=== PATIENT | female | born 1975 | race Two or more races ===

== ENCOUNTER 2020-05-03 13:59 | Outpatient (REF) | payer OTHER, SELFPAY ==
--- NOTE | 2020-05-03 14:06 | MM_ITS ---
EXAMINATION: MM SCREENING DIGITAL BREAST TOMOSYNTHESIS, BILATERAL CLINICAL INFORMATION: Screening. Asymptomatic. Left breast biopsy 2017, fibroadenoma. The lifetime risk of breast cancer based on the Tyrer-Cuzick Model is 16%. COMPARISON: Mammography: 04/17/2019, 04/22/2018, 01/19/2017 TECHNIQUE: Digital breast tomosynthesis is performed in both the craniocaudal and mediolateral oblique views along with computer-aided detection (CAD). Synthesized 2D images are generated from the tomosynthesis. FINDINGS: There are scattered areas of fibroglandular density (ACR BI-RADS breast composition Category b). There are no significant masses, abnormal calcifications, or other abnormalities. There is a nodule upper outer left breast with biopsy clip marker consistent with the known fibroadenoma. No significant changes. MM/MM tomosynthesis screening BI IMPRESSION: No significant changes from prior studies. ASSESSMENT: BI-RADS 2: Benign RECOMMENDATION: Routine annual mammography screening. This patient's information was entered into a reminder system with a target due date for their next mammogram.
== END 2020-05-03 14:00 | disposition home or self-care (01) ==
LOC: HO.MAMMO 13:59
PROVIDERS: Visit Provider Family Medicine
DX: Z12.31 Encounter for screening mammogram for malignant neoplasm of breast (principal)
CPT/HCPCS: 77063; 77067

== ENCOUNTER 2020-12-02 14:39 | Outpatient (REF) | payer OTHER, SELFPAY ==
--- NOTE | ~2020-12-02 | US_ITS ---
EXAMINATION: PELVIC ULTRASOUND CLINICAL INFORMATION: Leiomyoma COMPARISON: Previous pelvic ultrasound February 2016 TECHNIQUE: Transabdominal and transvaginal pelvic ultrasound was performed. Transvaginal exam was performed for better visualization is an ovaries. FINDINGS: The uterus is anteverted and retroflexed and measures 11 x 5.6 x 6.7 cm in dimension. There is a 1.5 x 1.4 x 4.5 cm hyperechoic lesion in the anterior right uterine fundus suggestive of a fibroid. This measured 1.8 x 1.3 x 3.8 cm on previous ultrasound does not appear appreciably changed in size. No other focal uterine lesion is seen. The endometrium is not well visualized. The cervix is normal appearing. The ovaries are seen transabdominally only and are normal-appearing. In the right ovary measures 2.4 x 1.8 x 1.8 cm and the left ovary measures 3.4 x 1.2 x 1.6 cm. There is no fluid in the pelvis. US/US pelvic and transvaginal IMPRESSION: Limited exam. Stable anterior fundal uterine fibroid. Endometrium not well visualized. Normal-appearing ovaries.
== END 2020-12-02 14:40 | disposition home or self-care (01) ==
LOC: HO.HMGCX 14:39
PROVIDERS: Visit Provider Advanced Practice Midwife
DX: D25.9 Leiomyoma of uterus, unspecified (principal)
CPT/HCPCS: 76830; 76856

== ENCOUNTER 2021-03-17 10:18 | Outpatient (REF) | payer OTHER, SELFPAY ==
--- NOTE | ~2021-03-17 | US_ITS ---
EXAMINATION: US ABDOMEN LIMITED CLINICAL INFORMATION: Right upper quadrant pain. COMPARISON: None TECHNIQUE: Real-time imaging of the right upper quadrant abdominal viscera. FINDINGS: PANCREAS: Normal. LIVER: Normal. The liver is normal in size. The liver contour is normal. Parenchymal echogenicity is normal. No focal hepatic lesion. There is no intrahepatic biliary duct dilatation seen. GALLBLADDER: Normal. The gallbladder is physiologically distended without evidence of stones, sludge, polyps, wall thickening or pericholecystic fluid. COMMON BILE DUCT: Normal in caliber measuring 0.32 cm in diameter. RIGHT KIDNEY: Normal. No hydronephrosis. No renal calculi or focal parenchymal lesions. The kidney measures 10.3 cm in maximum dimension. FREE FLUID: None. US/US abdomen limited IMPRESSION: Unremarkable sonographic appearance of the right upper quadrant of the abdomen.
== END 2021-03-17 10:19 | disposition home or self-care (01) ==
LOC: HO.HMGCX 10:18
PROVIDERS: PCP Internal Medicine; Visit Provider Internal Medicine
DX: R10.11 Right upper quadrant pain (principal)
CPT/HCPCS: 76705

== ENCOUNTER 2021-06-06 09:39 | Outpatient (REF) | payer OTHER, SELFPAY ==
--- NOTE | ~2021-06-06 | MM_ITS ---
EXAMINATION: MM SCREENING DIGITAL BREAST TOMOSYNTHESIS, BILATERAL CLINICAL INFORMATION: Screening. Asymptomatic. Left breast biopsy 2017 (fibroadenoma). The lifetime risk of breast cancer based on the Tyrer-Cuzick Model is 17%. COMPARISON: Mammography: 05/03/2020, 04/17/2019, 03/22/2018 TECHNIQUE: Digital breast tomosynthesis is performed in both the craniocaudal and mediolateral oblique views along with computer-aided detection (CAD). Synthesized 2D images are generated from the tomosynthesis. FINDINGS: There are scattered areas of fibroglandular density (ACR BI-RADS breast composition Category b). There are no significant masses, abnormal calcifications, or other abnormalities. There is a stable circumscribed nodule with adjacent biopsy clip marker mid upper outer left breast consistent with the known fibroadenoma. The axilla and skin contours are unremarkable. MM/MM tomosynthesis screening BI IMPRESSION: No mammographic evidence of malignancy. ASSESSMENT: BI-RADS 2: Benign RECOMMENDATION: Routine annual mammography screening. This patient's information was entered into a reminder system with a target due date for their next mammogram.
== END 2021-06-06 09:40 | disposition home or self-care (01) ==
LOC: HO.MAMMO 09:39
PROVIDERS: Visit Provider Internal Medicine
DX: Z12.31 Encounter for screening mammogram for malignant neoplasm of breast (principal)
CPT/HCPCS: 77063; 77067

== ENCOUNTER 2021-07-27 17:22 | Emergency (ER) | payer OTHER, SELFPAY ==
[2021-07-27 17:46] VITALS: BP 128/74; PULSE 90; RESP 16; TEMP 36.8; O2SAT 98; BMI 30.7
[2021-07-27 18:20] LABS: UPreg QC Valid YES; Urine Pregnancy NEGATIVE (NEGATIVE)
[2021-07-27 18:23] LABS: Appearance Urine CLEAR; Color Urine YELLOW; Glucose Urine UA NEG (NEG); Leukocyte Esterase Urine NEG (NEG); Nitrite Urine NEG (NEG); PH 5.5 (5.0-8.0); Urine Blood NEG (NEG); Urine Ketones NEG (NEG); Urine Protein NEG (NEG-TRACE)
--- NOTE | 2021-07-27 22:47 | ED_ITS ---
HPI - Female Genitourinary General Chief complaint: Urogenital-Female Stated complaint: urine infection Time Seen by Provider: 07/27/21 22:47 Source: patient, family () and behavior support specialist Mode of arrival: ambulatory History of Present Illness HPI Narrative: 45-year-old female without significant past medical history and does not take any prescribed medication presents with 3 days of increasing urinary frequency without associated burning/pain and denies any associated fever, chills, nausea, vomiting, diarrhea. Patient notes that she did increase her water/use intake because she thought she was getting a urinary tract infection. Although triage note says that she was having flank pain, patient states that she is no longer having the symptoms after she increased her water intake. Related Data Allergies Allergy/AdvReac Type Severity Reaction Status Date / Time No Known Allergies Allergy Verified 07/27/21 17:52 [No Known Allergies*] Review of Systems Review of Systems: Pertinent positives negatives as stated in HPI and 10 point review of systems is otherwise negative. [facility] Past Medical History Source: nursing notes reviewed Medical History delivery delivered Fibroid, uterine Social History Social History Advance Directives: No Advance Directives Information Provided: No Patient : No Physical Exam Vital Signs: Vital Signs: Last Vital Signs Temp 98.1 F 07/27/21 22:59 Pulse 76 07/27/21 22:59 Resp 14 07/27/21 22:59 BP 123/81 07/27/21 22:59 Pulse Ox 100 07/27/21 22:59 BMI result Body Mass Index 30.7 VITAL SIGNS: Reviewed. GENERAL: Well developed, well nourished, in no acute distress. HEAD: Normocephalic/atraumatic EYES: PERRLA, EOMI OROPHARYNX: no oral lesions noted, posterior pharynx clear LUNGS: Normal breath sounds. No adventitious sounds or accessory muscle use. SpO2<100> CARDIOVASCULAR: Regular rate and rhythm without noted murmurs ABDOMEN: Soft, non-tender, non-distended with bowel sounds, no CVA tenderness NEUROLOGIC: Alert and oriented x 4. Strength and sensation to light touch were grossly intact x 4. Course Course Course Narrative: 45-year-old female with history and clinical presentation mildly suggestive of possible UTI/renal colic, but symptoms have completely resolved and on review of all investigations and there is no evidence of hematuria or UTI. Suspect that increased frequency was secondary to increased fluid intake. Clinically, there is no evidence urinary tract infection. All results discussed with the patient at bedside in Hungarian and she was discharged home in stable condition. MDM - Female Genitourinary Lab Data Labs: Lab Results 07/27/21 07/27/21 Range/Units 18:05 18:05 Urine Color YELLOW Urine Appearance CLEAR Urine pH 5.5 (5.0-8.0) Ur Specific [place] 1.020 (1.005-1.025) Urine Protein NEG (NEG-TRACE) MG/DL Urine Glucose (UA) NEG (NEG) MG/DL Urine Ketones NEG (NEG) MG/DL Urine Blood NEG (NEG) Urine Nitrite NEG (NEG) Ur Leukocyte Esterase NEG (NEG) Urine Test NEGATIVE (NEGATIVE) Discharge Plan Discharge Clinical Impression: Urinary frequency Patient Disposition: Home, Self-Care Instructions: Urinary Urgency and Frequency (DC) Additional Instructions: 1. Voc? fez um exame de urina hoje que foi negativo para evid?ncia de hemat?salvador ou infec??o. 2. Embora exista a remota possibilidade de voc? ter sarah pedra, voc? deve ter passado pela pedra. Retorne ao pronto-chandrika para piora dos sintomas
[2021-07-27 22:59] VITALS: BP 123/81; PULSE 76; RESP 14; TEMP 36.7; O2SAT 100
== END 2021-07-27 23:49 | disposition home or self-care (01) ==
PROVIDERS: Emergency Provider Student in an Organized Health Care Education/Training Program
DX: R35.0 Frequency of micturition (principal)
CPT/HCPCS: 81003; 81025; 99283

== ENCOUNTER 2022-02-15 08:43 | Emergency (ER) | payer MEDICAID, OTHER, SELFPAY ==
--- NOTE | 2022-02-15 | ECG_ITS ---
Test Reason : ABD PAIN Blood Pressure : / mmHG Vent. Rate : 078 BPM Atrial Rate : 078 BPM P-R Int : 156 ms QRS Dur : 094 ms QT Int : 382 ms P-R-T Axes : 047 004 009 degrees QTc Int : 435 ms Normal sinus rhythm Normal ECG No previous ECGs available Referred By: Lety Neri Electronically Signed By:IGNACIO LOWRY
--- NOTE | ~2022-02-15 | US_ITS ---
EXAMINATION: US PELVIS CLINICAL INFORMATION: Vaginal bleeding COMPARISON: 12/02/2020 TECHNIQUE: Ultrasound of the pelvis is performed using both transabdominal and transvaginal transducers along with Doppler. Transvaginal imaging is performed due to inadequate visualization transabdominally. Even the endovaginal images however are somewhat limited due to position of the uterus FINDINGS: Uterus: The uterus is anteverted but retroflexed and measures 11.3 x 5.4 x 6.5 cm. 1.6 x 1.4 x 3.6 cm left anterior fibroid. 1.7 x 1.0 x 1.6 cm right anterior body fibroid. The double wall endometrial thickness is 1.5 cm mm. The uterus is smooth in contour and has normal myometrial echogenicity. Adnexa: Both ovaries are visualized. There is normal color flow to the adnexa. There is no ovarian torsion. There is no pelvic ascites or fluid collection. Right ovary measures 2.1 x 1.5 x 1.4 cm. 2.3 mL. Left ovary measures 2.0 x 1.9 x 2.2 cm. 4.4 mL. No significant free fluid in the cul-de-sac. US/US pelvic and transvaginal IMPRESSION: I do not appreciate any acute abnormality. Small fibroids noted. Ovaries unremarkable.
[2022-02-15 09:06] VITALS: BP 138/82; PULSE 97; RESP 18; TEMP 36.8; O2SAT 96; BMI 28.7
[2022-02-15 09:27] LABS: MANUAL DIFF FLAG NO
[2022-02-15 09:28] LABS: Basophils Percent Auto 0.2 % (0-2); Eosinophils Absolute Auto 0.1 X10*3/uL (0.0-0.4); Eosinophils Percent Auto 0.9 % (0-4); Hematocrit 43.6 % (37.0-47.0); Hemoglobin 14.3 g/dl (12.0-16.0); Imm Gran Abs Auto 0.02 X10*3/uL (0.00-0.03); Imm Gran Pct Auto 0.2 % (0.0-0.4); Lymphocytes Absolute Auto 2.4 X10*3/uL (1.2-4.9); Mean Corpuscular HGB Conc 32.8 g/dl (31.0-35.0); Mean Corpuscular Hemoglobin 28.9 pg (27.0-33.0); Mean Corpuscular Volume 88.1 fL (80.0-98.0); Mean Platelet Volume 9.6 fL (9.4-12.3); Monocytes Absolute Auto 0.7 X10*3/uL (0.1-1.2); Monocytes Percent Auto 7.8 % (2-11); Neutrophils Absolute Auto 5.7 x10*3/uL (2.0-8.3); Neutrophils Percent Auto 63.9 % (45-73); Platelet Count 296 X10*3/uL (160-400); Red Blood Count 4.95 X10*6/uL (4.20-5.50); Red Cell Distribution Width 12.6 % (11.0-16.0); White Blood Count 8.9 X10*3/uL (4.8-10.8)
[2022-02-15 09:56] LABS: Alanine Aminotransferase 17 U/L (0-31); Albumin Level 4.2 g/dL (3.5-5.0); Alkaline Phosphatase 65 U/L (39-117); Anion Gap 14 (12-20); Aspartate Amino Transferase 19 U/L (5-31); Bilirubin Total 0.5 mg/dL (0.0-1.0); Blood Urea Nitrogen 19 mg/dL (9-16); Calcium 9.7 mg/dL (8.4-10.2); Carbon Dioxide 25 mmol/L (22-29); Chloride 106 mmol/L (96-108); Creatinine Clr Calc Pharmacy 82.1; Estimated Glomerular Filt Rate > 60; Glucose Random 108 mg/dL (60-115); Lipase 32 U/L (8-78); Sodium 140 mmol/L (135-145)
[2022-02-15 18:02] VITALS: BP 120/78; PULSE 89; RESP 18; TEMP 37.1; O2SAT 100
--- NOTE | 2022-02-15 18:02 | ED_ITS ---
HPI - Abdominal Pain General Chief Complaint: Abdominal Pain Stated Complaint: Abd pain/Vaginal bleeding Source: patient Mode of arrival: ambulatory Limitations: language barrier (Malaysian, is interpreting) History of Present Illness HPI narrative: 46-year-old female presents with epigastric abdominal pain for 4 days, and abnormal vaginal bleeding. States that she is on a new diet, has been drinking a lot of coffee, and has a history of uterine fibroids. She does report that the epigastric pain radiates up through chest. She did not describe palpitations, fevers, chills, abdominal distention, weakness, chills, and edema. MD elicited complaint: abdominal pain Onset (ago): day(s) (5) Pain Consistency: intermittent Location: epigastric Severity: moderate Pain scale (0-10): 7 Quality: burning Radiation: none Migration to: no migration Exacerbating factors: eating Relieving factors: nothing Associated symptoms: other (Abnormal vaginal bleeding) Related Data Patient : No Previous Rx's Medication Instructions Recorded nitrofurantoin 100 mg PO Q12H 7 days #14 caps 02/15/22 monohydrate/macrocrystals 100 mg capsule (Macrobid) Allergies Allergy/AdvReac Type Severity Reaction Status Date / Time No Known Allergies Allergy Verified 02/15/22 09:06 [No Known Allergies*] Review of Systems Review of Systems Constitutional: No Fever, No Chills ENT/Mouth: No Ear Pain, No Hoarseness, No sore throat Eyes: No Eye Pain, No Swelling, No Redness, No Foreign Body Cardiovascular: Positive referred Chest Pain, No SOB Respiratory: No Cough, No Dyspnea Gastrointestinal: No Nausea, No Vomiting, No Diarrhea, positive epigastric abdominal Pain Genitourinary: Positive abnormal vaginal bleeding, No Dysuria, No Hematuria Musculoskeletal: positive joint pain, No Myalgias, No Joint Swelling Skin: No Skin lacerations, No rash Neuro: No Weakness, No Numbness, No Paresthesias, No Loss of Consciousness, No Dizziness, No Headache Psych: No Anxiety/Panic, No Depression Heme/Lymph: no easy bruising, no Lymphadenopathy Endocrine: No Polyuria, No Polydipsia Yes all other systems are reviewed and are negative PMFSH Past Medical History Attestation statement: The following information was validated with the patient. Source: old records reviewed Medical History delivery delivered Fibroid, uterine Social History Social History Smoked in Last 30 Days: No Use of substances other than those prescribed or required for medical reasons: No Advance Directives: No Advance Directives Information Provided: No Patient : No Physical Exam ED Vital Signs: Vital Signs - 24 hr 02/15/22 09:06 02/15/22 18:02 02/15/22 20:12 Temperature 98.3 F 98.8 F 97.3 F Pulse Rate 97 89 78 Respiratory Rate 18 18 18 Blood Pressure 138/82 120/78 119/81 Pulse Oximetry 96 100 97 Oxygen Delivery Method Room Air Room Air Room Air BMI result Body Mass Index 28.7 Appearance: Alert. Oriented X3. No acute distress. Eyes: Pupils equal, round and reactive to light. ENT: Pharynx normal. Neck: Normal inspection. Neck supple. CVS: Normal heart rate and rhythm. Pulses normal. Respiratory: No respiratory distress. Breath sounds normal. Abdomen: Soft and epigastric tenderness to palpation. Negative Mukherjee's and McBurney's. Skin: Skin warm and dry. Normal skin color. Normal skin turgor. Extremities: No lower extremity edema. Gait well-balanced well coordinated. Neuro: No motor deficit. No sensory deficit. Cranial nerves 2-12 intact Course Course Course Narrative: 46-year-old female presents with 5 days of epigastric pain, mostly after drinking coffee, states that she is on a new diet and has epigastric burning. Has been taking Maalox with good effect. Her 2nd complaint is abnormal vaginal bleeding. She does have a history of uterine fibroids. Labs drawn while patient was in the emergency department waiting room, BUN elevated at 19, urinalysis positive for heme and leukocyte esterase. Will order pelvic ultrasound time. Will rule ACS with EKG and troponin. Pelvic ultrasound is negative, will treat for UTI. EKG normal sinus, troponins are negative. Low likelihood of ACS. Will treat with nitrofurantoin, Malaysian leveler helper utilized, patient's acted as pay station department manager per patient request. Patient verbalized understanding of and agrees to plan of care discharge home. Verbalized understanding of signs and symptoms indicating need for emergent intervention. MDM - Abdominal Pain Differential Diagnosis Differential diagnosis: Likely abdominal pain, acute appendicitis, calculus of kidney, gastroenteritis, gastritis and pancreatitis Medical Records Attestation: I reviewed the patient's medical records. Lab Data Attestation: I reviewed the patient's lab results. Result diagrams: 02/15/22 09:17 02/15/22 09:17 Labs: Lab Results 02/15/22 02/15/22 02/15/22 Range/Units 09:17 09:17 18:21 WBC 8.9 (4.8-10.8) X10*3/uL RBC 4.95 (4.20-5.50) X10*6/uL Hgb 14.3 (12.0-16.0) g/dl Hct 43.6 (37.0-47.0) % MCV 88.1 (80.0-98.0) fL MCH 28.9 (27.0-33.0) pg MCHC 32.8 (31.0-35.0) g/dl RDW 12.6 (11.0-16.0) % Plt Count 296 (160-400) X10*3/uL MPV 9.6 (9.4-12.3) fL Immature Gran % (Auto) 0.2 (0.0-0.4) % Neut % (Auto) 63.9 (45-73) % Lymph % (Auto) 27.0 (20-40) % [place] % (Auto) 7.8 (2-11) % Eos % (Auto) 0.9 (0-4) % Baso % (Auto) 0.2 (0-2) % Lymph # (Auto) 2.4 (1.2-4.9) X10*3/uL [place] # (Auto) 0.7 (0.1-1.2) X10*3/uL Eos # (Auto) 0.1 (0.0-0.4) X10*3/uL Baso # (Auto) 0.0 (0.0-0.2) X10*3/uL Abs Immat Gran (auto) 0.02 (0.00-0.03) X10*3/uL Absolute Neuts (auto) 5.7 (2.0-8.3) x10*3/uL Absolute Nucleated RBC 0.000 (0.0-0.012) X10*3/uL Nucleated RBC % (auto) 0.0 (0.0-0.2) /100WBC Sodium 140 (135-145) mmol/L Potassium 5.0 (3.3-5.1) mmol/L Chloride 106 (96-108) mmol/L Carbon Dioxide 25 (22-29) mmol/L Anion Gap 14 (12-20) BUN 19 H (9-16) mg/dL Creatinine 0.76 (0.5-1.4) mg/dL Estim Creat Clear Calc 82.1 Estimated GFR > 60 Random Glucose 108 (60-115) mg/dL Calcium 9.7 (8.4-10.2) mg/dL Total Bilirubin 0.5 (0.0-1.0) mg/dL AST 19 (5-31) U/L ALT 17 (0-31) U/L Alkaline Phosphatase 65 (39-117) U/L Troponin I High Sens (<3.5-17.0) ng/L Total Protein 7.0 (6.5-8.0) g/dL Albumin 4.2 (3.5-5.0) g/dL Lipase 32 (8-78) U/L Urine Color Yellow Urine Appearance Clear Urine pH 5.5 (5.0-9.0) Ur Specific [place] 1.025 (1.005-1.025) Urine Protein Negative (Neg-Trace) mg/dL Urine Glucose (UA) Negative (Negative) mg/dL Urine Ketones Trace (Negative) mg/dL Urine Blood Moderate (2+) H (Negative) Urine Nitrite Negative (Negative) Ur Leukocyte Esterase Trace H (Negative) Urine RBC 6-10 H (0-2) /HPF Urine WBC 0-5 (0-5) /HPF Ur Squamous Epith Cells 3-5 (0-2) /HPF Urine Bacteria None Seen (None Seen) Hyaline Casts 0-2 (0-2) /LPF Urine Test (NEGATIVE) 02/15/22 02/15/22 Range/Units 18:21 20:00 WBC (4.8-10.8) X10*3/uL RBC (4.20-5.50) X10*6/uL Hgb (12.0-16.0) g/dl Hct (37.0-47.0) % MCV (80.0-98.0) fL MCH (27.0-33.0) pg MCHC (31.0-35.0) g/dl RDW (11.0-16.0) % Plt Count (160-400) X10*3/uL MPV (9.4-12.3) fL Immature Gran % (Auto) (0.0-0.4) % Neut % (Auto) (45-73) % Lymph % (Auto) (20-40) % [place] % (Auto) (2-11) % Eos % (Auto) (0-4) % Baso % (Auto) (0-2) % Lymph # (Auto) (1.2-4.9) X10*3/uL [place] # (Auto) (0.1-1.2) X10*3/uL Eos # (Auto) (0.0-0.4) X10*3/uL Baso # (Auto) (0.0-0.2) X10*3/uL Abs Immat Gran (auto) (0.00-0.03) X10*3/uL Absolute Neuts (auto) (2.0-8.3) x10*3/uL Absolute Nucleated RBC (0.0-0.012) X10*3/uL Nucleated RBC % (auto) (0.0-0.2) /100WBC Sodium (135-145) mmol/L Potassium (3.3-5.1) mmol/L Chloride (96-108) mmol/L Carbon Dioxide (22-29) mmol/L Anion Gap (12-20) BUN (9-16) mg/dL Creatinine (0.5-1.4) mg/dL Estim Creat Clear Calc Estimated GFR Random Glucose (60-115) mg/dL Calcium (8.4-10.2) mg/dL Total Bilirubin (0.0-1.0) mg/dL AST (5-31) U/L ALT (0-31) U/L Alkaline Phosphatase (39-117) U/L Troponin I High Sens < 3.5 (<3.5-17.0) ng/L Total Protein (6.5-8.0) g/dL Albumin (3.5-5.0) g/dL Lipase (8-78) U/L Urine Color Urine Appearance Urine pH (5.0-9.0) Ur Specific [place] (1.005-1.025) Urine Protein (Neg-Trace) mg/dL Urine Glucose (UA) (Negative) mg/dL Urine Ketones (Negative) mg/dL Urine Blood (Negative) Urine Nitrite (Negative) Ur Leukocyte Esterase (Negative) Urine RBC (0-2) /HPF Urine WBC (0-5) /HPF Ur Squamous Epith Cells (0-2) /HPF Urine Bacteria (None Seen) Hyaline Casts (0-2) /LPF Urine Test NEGATIVE (NEGATIVE) Imaging Data Pelvic ultrasound: Attestation: I personally reviewed and interpreted this imaging study as follows: Radiologist's impression: EXAMINATION:? US PELVIS CLINICAL INFORMATION:? Vaginal bleeding COMPARISON: 12/02/2020 TECHNIQUE: Ultrasound of the pelvis is performed using both transabdominal and transvaginal transducers along with Doppler. Transvaginal imaging is performed due to inadequate visualization transabdominally. Even the endovaginal images however are somewhat limited due to position of the uterus FINDINGS: Uterus: The uterus is anteverted but retroflexed and measures 11.3 x 5.4 x 6.5 cm.? 1.6 x 1.4 x 3.6 cm left anterior fibroid. 1.7 x 1.0 x 1.6 cm right anterior body fibroid. The double wall endometrial thickness is 1.5 cm mm.? The uterus is smooth in contour and has normal myometrial echogenicity. ? Adnexa: Both ovaries are visualized. There is normal color flow to the adnexa. There is no ovarian torsion.? There is no pelvic ascites or fluid collection. Right ovary measures 2.1 x 1.5 x 1.4 cm. 2.3 mL. Left ovary measures 2.0 x 1.9 x 2.2 cm. 4.4 mL. No significant free fluid in the cul-de-sac. US/US pelvic and transvaginal IMPRESSION: I do not appreciate any acute abnormality. Small fibroids noted. Ovaries unremarkable. ECG Data Attestation: I personally reviewed and interpreted this ECG as follows: ECG interpretation date: 02/15/22 ECG interpretation time: 20:17 Prior ECG tracings: not available for review Interpretation: Vent. rate 78 BPM ND interval 156 ms QRS duration 94 ms QT/QTc 382/435 ms P-R-T axes 47 4 9 Normal sinus rhythm Normal ECG No previous ECGs available Discharge Plan Discharge Clinical Impression: Abdominal pain, Abnormal vaginal bleeding, Gastritis, UTI (urinary tract infection) Patient Disposition: Home, Self-Care Instructions: Dysfunctional Uterine Bleeding (ED), Gastritis (ED), Urinary Tract Infection in Women (ED), Abdominal Pain (ED) Additional Instructions: Voc? foi avaliado para smith abdominal, essa smith ? compat?aimee com gastrite. Continue a usar o Maalox brien receita. Considere beber menos caf?. Acompanhamento com gastroenterologia em ambulat?ambreen. Ligue e solicite um hor?ambreen para avalia?? o. Eu forneci um n?scott de telefone para voc? Seu exame de urina indica infec??o do trato urin?ambreen. [place] Macrobid 100 mg duas vezes por geetha eddy os 7 [place] seguintes. Beber corie quantidade de l?quidos. Seu ultrassom p?lvico foi normal com miomas uterinos conhecidos. Acompanhamento com m?dico de cuidados prim?frank, conforme necess?ambreen. Retorne ao departamento de emerg?ncia para quaisquer sintomas novos, preocupantes ou agravantes. You were evaluated for abdominal pain, this pain is consistent with gastritis. Continue to use huwk-ebt-bnflxki Maalox. Consider drinking less coffee. Follow-up with gastroenterology as an outpatient. Please call and request an appointment for evaluation. I provided a phone number for you Your urinalysis indicates urinary tract infection. Take Macrobid 100 mg twice a day for the next 7 days. Drink plenty of fluids. Your pelvic ultrasound was normal with known uterine fibroids. Follow-up with primary care physician as needed. Return to the emergency department for any new, concerning, or worsening symptoms. Prescriptions: New nitrofurantoin monohyd/m-cryst [Macrobid] 100 mg capsule 100 mg PO Q12H 7 Days Qty: 14 0RF Rx Instructions: must administer with a meal/food Referrals: Jessica Cazares MD [Physician] - 2 weeks (GERD) Interventions: ED Discharge Assessment Last Done: 02/15/22 21:50 Discharge Date/Time: 02/15/22 21:54
[2022-02-15 18:28] LABS: Appearance Urine Clear; Color Urine Yellow; Glucose Urine UA Negative (Negative); Leukocyte Esterase Urine Trace (Negative); Nitrite Urine Negative (Negative); PH 5.5 (5.0-9.0); Specific Gravity - Urine 1.025 (1.005-1.025); UMIC TRIGGER UACC YES; Urine Blood Moderate (2+) (Negative); Urine Ketones Trace mg/dL (Negative); Urine Protein Negative (Neg-Trace)
[2022-02-15 18:33] LABS: UPreg QC Valid YES; Urine Pregnancy NEGATIVE (NEGATIVE)
[2022-02-15 18:46] LABS: Bacteria Urine None Seen (None Seen); Hyaline Casts Urine 0-2 /LPF (0-2); WBC Urine 0-5 /HPF (0-5)
--- NOTE | 2022-02-15 19:30 | PC.NURSE ---
assumed care of pt at 1900 - report received from Evy MACIAS. pt resting comfortably on stretcher, IV fluids running. pt being taken for ultrasound. will continue to monitor
[2022-02-15 20:12] VITALS: BP 119/81; PULSE 78; RESP 18; TEMP 36.3; O2SAT 97
[2022-02-15 20:32] LABS: Troponin-I High Sensitivity < 3.5 ng/L (<3.5-17.0)
[2022-02-15] MEDS: Nitrofurantoin Monohyd/M-Cryst 100 MG CAPSULE PO (21:31)
== END 2022-02-15 21:54 | disposition home or self-care (01) ==
PROVIDERS: Nurse Practitioner Family; Emergency Provider Student in an Organized Health Care Education/Training Program; PCP Internal Medicine
DX: N93.8 Other specified abnormal uterine and vaginal bleeding (principal); K29.70 Gastritis, unspecified, without bleeding; N39.0 Urinary tract infection, site not specified; R10.829 Rebound abdominal tenderness, unspecified site; Z79.899 Other long term (current) drug therapy
CPT/HCPCS: 36415; 76830; 76856; 80053; 81001; 81025; 83690; 84484; 85025; 93005; 99284

== ENCOUNTER 2022-06-07 16:55 | Emergency (ER) | payer MEDICAID, OTHER, SELFPAY ==
--- NOTE | ~2022-06-07 | CT_ITS ---
EXAMINATION: CT CERVICAL SPINE WITHOUT CONTRAST CLINICAL INFORMATION: Posterior neck pain COMPARISON: None TECHNIQUE: Noncontrast axial imaging with coronal and sagittal reformatted images. This CT examination was performed using dose optimization techniques as appropriate, variously including the following: *Automated exposure control *Adjustment of mA and/or kV according to patient size (this includes techniques or standardized protocols for targeted exams where dose is matched to indication/reason for exam; i.e. extremities or head) *Use of iterative reconstruction technique DLP: 326 mGy-cm FINDINGS: No acute fracture or dislocation. CT/CT cervical spine wo IV con IMPRESSION: No acute fracture or dislocation. No intrathecal contrast is given here. Therefore evaluation of disc, cord, nerve roots and soft tissue is not adequately evaluated. Correlation recommended clinically. Recommend MRI for further evaluation if clinically indicated.
[2022-06-07 17:06] VITALS: BP 149/84; PULSE 88; RESP 18; TEMP 36.6; O2SAT 98; BMI 26.2
--- NOTE | 2022-06-07 19:16 | ED_ITS ---
HPI - General Adult General Chief complaint: Neck Pain/Injury Stated complaint: neck pain Time Seen by Provider: 06/07/22 19:09 Source: patient Mode of arrival: ambulatory Limitations: no limitations History of Present Illness HPI narrative: 46 yold female presents to the ED for posterior neck pain for 1 week. 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 patient states since than neck pain on range of motion. Patient states no fever, chills, headache, tingling/nubmness of upper extremties, photophobia, nausea, vomitting, paralysis of extremities or any recent blood trauma to head and neck Related Data Previous Rx's Medication Instructions Recorded nitrofurantoin 100 mg PO Q12H 7 days #14 caps 02/15/22 monohydrate/macrocrystals 100 mg capsule (Macrobid) cyclobenzaprine 10 mg tablet 10 mg PO TID PRN muscle spasm 7 06/07/22 days #21 tabs naproxen 500 mg tablet 500 mg PO BID PRN pain 10 days #20 06/07/22 tabs prednisone 20 mg tablet 40 mg PO DAILY 5 days #10 tabs 06/07/22 Allergies Allergy/AdvReac Type Severity Reaction Status Date / Time No Known Allergies Allergy Verified 06/07/22 17:06 [No Known Allergies*] Review of Systems Review of Systems: neck pain on movement Yes all other systems are reviewed and are negative PMFSH Past Medical History Medical History delivery delivered Fibroid, uterine Social History Social History Advance Directives: No Advance Directives Information Provided: Yes Physical Exam ED Vital Signs: Vital Signs - 24 hr 06/07/22 17:06 06/07/22 20:11 Temperature 98 F 97.8 F Pulse Rate 88 73 Respiratory Rate 18 18 Blood Pressure 149/84 H 137/82 Pulse Oximetry 98 99 Oxygen Delivery Method Room Air Room Air BMI result Body Mass Index 26.2 Const General: cooperative, healthy appearing, comfortable, no acute distress, well developed, alert, awake and Physically active Orientation/consciousness: oriented to person, oriented to place, oriented to time and patient oriented x3 HENMT Head: Yes normal to inspection, Yes No palpable skull fracture present, Yes normocephalic, Yes atraumatic and No abrasion Ears: hearing grossly normal bilaterally, external ears normal, TM's normal bilaterally, TM normal on the right, EAC's normal, mastoids normal and no periauricular adenopathy Eyes General: appearance normal, both eyes and all related structures Neck Neck: Yes normal visual inspection, Yes full ROM, Yes no lymphadenopathy, Yes no meningeal signs, Yes trachea midline, Yes supple, No anterior neck swelling and Yes tender (posterior cervical and posterior left lateral) Neck images: 1. tenderness on palpation. negative for any crepitus or ecchysmosis/redness 2. tenderness on palpation. negative for any crepitus or ecchysmosis/redness Chest Chest palpation & inspection: normal inspection of the chest and normal palpation of entire chest wall Resp Effort & Inspection: normal respiratory effort and able to speak in complete sentences Auscultation: clear to auscultation bilaterally Cardio Jugular venous distension: no JVD Heart sounds: S1 normal heart sound present and S2 normal heart sound present GI Inspection: Yes normal to inspection and No abdominal wall ecchymosis Palpation (GI): Soft to palpation, not firm, nontender, no guarding and not rigid General: No CVA tenderness and Yes no CVA tenderness Back/Spine/Pelvis Back: no CVA tenderness, No CVA tenderness and No back tenderness Skin General skin exam: no rashes or lesions noted and elasticity normal Neuro General: oriented to person, oriented to place, oriented to time, patient oriented x3, gait normal, tone normal, moves all extremities, Normal light touch and pain sensation, no meningeal signs, no focal motor deficits and CN's II-XI intact bilaterally Extrem General: Yes normal to inspection and Yes full ROM Psych Appearance: grossly normal and well kempt Course Course Course Narrative: Most likely muscular neck pain, but will do cervical spine CT to cervical spine tenderness. Not suspecting carotid dissection. Patient has no anterior neck pain, neck swelling, ecchymosis, blunt trauma, or recent chiropractor work. Reevaluation(s) Reevaluation #1: NEck CT Cervical spine normal. Patient feel better after meds Time: 21:01 Medications Administered Discontinued Medications Generic Name Dose Route Start Last Admin Trade Name Freq PRN Reason Stop Dose Admin Cyclobenzaprine HCl 10 mg 06/07/22 19:14 06/07/22 19:20 Cyclobenzaprine Hcl 10 Mg Tablet PO 06/07/22 19:15 10 mg ONCE ONE Administration Ibuprofen 800 mg 06/07/22 19:14 06/07/22 19:20 Ibuprofen 800 Mg Tablet PO 06/07/22 19:15 800 mg ONCE ONE Administration Prednisone 60 mg 06/07/22 19:14 06/07/22 19:20 Prednisone 20 Mg Tablet PO 06/07/22 19:15 60 mg ONCE ONE Administration Medical Decision Making Medical Decision Making MDM Narrative: 46 yold female with muscular neck pain for one week after after awkward movement. History and physical exam does not indicate meningitis, carotid dissection, fracture, or orther life threatenning etiologies Differential Diagnosis Differential Diagnoses: The differential diagnosis associated with the presentation includes (meninigits, muscle spasm, carotid dissection, cervical fracture) Admission/Observation does not need admission Radiology Impression Discussion of test interpretation with radiology: I have reviewed the radiologist's reading. Independent Historian Clinical information obtained from an independent historian. History obtained from or confirmed by: Spouse () Prescription Management I considered prescription management with: Pain Medication (naproxen) Discharge Plan Discharge Clinical Impression: Muscle spasm, Strain of neck muscle Patient Disposition: Home, Self-Care Instructions: Cervical Strain (ED), Cervical Sprain (ED), Muscle Spasm (ED) Additional Instructions: La tomograf?a computarizada del tena result? negativa para cualquier fractura. Lo m?s probable es que te hayas desgarrado un m?sculo. Ser? dado de minerva con a nalg?sicos, relajantes musculares y esteroides. Recomendamos compresiones calientes o en el tena 4 veces al d?a eddy 15 minutos. Regrese al servicio de urgencias por fotofobia, n?useas, v?mitos, dolor de ramo, par?lisis de las extremidades superiores, hormigueo/entumecimiento de las extremidades superiores, dolor tor?cico, dificultad para respirar o cualquier otro s?ntoma preocupante. Por favor, kari un seguimiento con el PCP. Prescriptions: New naproxen 500 mg tablet 500 mg PO BID PRN (Reason: pain) 10 Days Qty: 20 0RF prednisone 20 mg tablet 40 mg PO DAILY 5 Days Qty: 10 0RF cyclobenzaprine 10 mg tablet 10 mg PO TID PRN (Reason: muscle spasm) 7 Days Qty: 21 0RF Rx Instructions: side effect is drowsiness. Do not take at work or while driving No Action nitrofurantoin monohyd/m-cryst [Macrobid] 100 mg capsule 100 mg PO Q12H 7 Days Qty: 14 0RF Rx Instructions: must administer with a meal/food Referrals: Terrance Bates MD [Primary Care Provider] - (neck pain) Stand Alone Forms: Work/School Release Interventions: ED Discharge Assessment Last Done: 06/07/22 21:24 Discharge Date/Time: 06/07/22 21:24 Print Language: Maori
[2022-06-07] MEDS: Ibuprofen 800 MG TABLET PO (19:20)
[2022-06-07] MEDS: predniSONE 20 MG TABLET 60 MG PO (19:20)
[2022-06-07] MEDS: Cyclobenzaprine HCl 10 MG TABLET PO (19:20)
--- NOTE | 2022-06-07 19:22 | PC.NURSE ---
pt medicated per provider order for 8/10 neck pain/stiffness.
[2022-06-07 20:11] VITALS: BP 137/82; PULSE 73; RESP 18; TEMP 36.6; O2SAT 99
--- NOTE | 2022-06-07 20:52 | PC.NURSE ---
pt reporting slight reduction in pain to 7/10 w improvement in movement and flexion noted.
== END 2022-06-07 21:24 | disposition home or self-care (01) ==
PROVIDERS: Emergency Provider Internal Medicine; PCP Internal Medicine
DX: M54.2 Cervicalgia (principal); M62.838 Other muscle spasm; Z79.899 Other long term (current) drug therapy
CPT/HCPCS: 72125; 99284

== ENCOUNTER 2022-06-15 13:07 | Outpatient (REF) | payer MEDICAID, OTHER, SELFPAY ==
--- NOTE | ~2022-06-15 | MM_ITS ---
EXAMINATION: MM SCREENING DIGITAL BREAST TOMOSYNTHESIS, BILATERAL CLINICAL INFORMATION: Screening. Asymptomatic. The lifetime risk of breast cancer based on the Tyrer-Cuzick Model is 19.0%. COMPARISON: Mammography: June 06, 2021 and studies dating back to January 01, 2017 TECHNIQUE: Digital breast tomosynthesis is performed in both the craniocaudal and mediolateral oblique views along with computer-aided detection (CAD). Synthesized 2D images are generated from the tomosynthesis. FINDINGS: There are scattered areas of fibroglandular density (ACR BI-RADS breast composition Category b). There are no significant masses, abnormal calcifications, or other abnormalities. MM/MM tomosynthesis screening BI IMPRESSION: No significant changes from prior exam. ASSESSMENT: BI-RADS 1: Negative RECOMMENDATION: Routine annual mammography screening. This patient's information was entered into a reminder system with a target due date for their next mammogram.
== END 2022-06-15 13:08 | disposition home or self-care (01) ==
LOC: HO.MAMMO 13:07
PROVIDERS: PCP Internal Medicine; Visit Provider Internal Medicine
DX: Z12.31 Encounter for screening mammogram for malignant neoplasm of breast (principal)
CPT/HCPCS: 77063; 77067

== ENCOUNTER 2022-06-19 17:39 | Emergency (ER) | payer MEDICAID, OTHER, SELFPAY ==
--- NOTE | ~2022-06-19 | CT_ITS ---
EXAMINATION: CT ABDOMEN AND PELVIS WITH CONTRAST CLINICAL INFORMATION: Abdominal pain COMPARISON: None TECHNIQUE: Multidetector volumetric images were obtained from the superior aspect of the liver through the pubic symphysis following administration 85 mL of Omnipaque 350 intravenous contrast. Sagittal and coronal reformatted images were obtained on the technologist's workstation. Oral contrast: No This CT examination was performed using dose optimization techniques as appropriate, variously including the following: *Automated exposure control *Adjustment of mA and/or kV according to patient size (this includes techniques or standardized protocols for targeted exams where dose is matched to indication/reason for exam; i.e. extremities or head) *Use of iterative reconstruction technique DLP: 441 mGy-cm FINDINGS: LUNG BASES: The visualized lung bases are unremarkable. LIVER, GALLBLADDER, AND BILIARY TREE: The liver is normal in size, shape, and attenuation. No focal hepatic lesion or biliary ductal dilatation is present. The gallbladder is unremarkable with no evidence of radiopaque gallstones, gallbladder wall thickening, or obvious pericholecystic inflammatory changes. PANCREAS: Unremarkable. SPLEEN: Unremarkable. ADRENAL GLANDS: Unremarkable. KIDNEYS AND URETERS: The kidneys are normal in size, shape, and attenuation. There are nonobstructive 3 mm upper pole right kidney and a 2 mm radiopaque calculi upper pole left kidney. No caliectasis or hydronephrosis seen. BLADDER: Unremarkable. GASTROINTESTINAL TRACT: There is large amount of stool seen in the colon without any significant distention. The small bowel loops are normal caliber. Appendix is not visualized. ABDOMINAL WALL: No significant hernia is appreciated. LYMPH NODES: Normal. VASCULAR: The abdominal aorta is normal caliber. PELVIC VISCERA: The uterus is anteverted and slightly bulky. No focal lesion seen. There is no free fluid. No abnormal pelvic or inguinal lymph nodes seen. There is no free fluid. OSSEOUS STRUCTURES: No aggressive lytic or sclerotic process seen. CT/CT abdomen pelvis w IV con IMPRESSION: No acute intra-abdominal process seen Nonobstructive bilateral upper pole renal calculi. Anteverted bulky uterus. Fleischner guidelines were followed.
--- NOTE | 2022-06-19 17:45 | ED_ITS ---
HPI - General Adult General Chief complaint: Abdominal Pain Stated complaint: Abdominal Pain, Nausea, Vomiting Time Seen by Provider: 06/19/22 18:17 Related Data Previous Rx's Medication Instructions Recorded nitrofurantoin 100 mg PO Q12H 7 days #14 caps 02/15/22 monohydrate/macrocrystals 100 mg capsule (Macrobid) cyclobenzaprine 10 mg tablet 10 mg PO TID PRN muscle spasm 7 06/07/22 days #21 tabs naproxen 500 mg tablet 500 mg PO BID PRN pain 10 days #20 06/07/22 tabs prednisone 20 mg tablet 40 mg PO DAILY 5 days #10 tabs 06/07/22 Allergies Allergy/AdvReac Type Severity Reaction Status Date / Time No Known Allergies Allergy Verified 06/07/22 17:06 [No Known Allergies*] PMFSH Past Medical History Medical History delivery delivered Fibroid, uterine Social History Social History Alcohol intake: never Smoked in Last 30 Days: No Use of substances other than those prescribed or required for medical reasons: No Advance Directives: No Advance Directives Information Provided: No Patient : No Physical Exam ED Vital Signs: Vital Signs - 24 hr 06/19/22 17:46 06/19/22 18:28 06/19/22 20:00 Temperature 98 F 99.1 F Pulse Rate 103 H 97 95 Respiratory Rate 18 16 16 Blood Pressure 129/87 121/71 Pulse Oximetry 99 100 98 Oxygen Delivery Method Room Air Room Air Room Air 06/19/22 22:00 Temperature 99.1 F Pulse Rate 91 Respiratory Rate 16 Blood Pressure 117/65 Pulse Oximetry 98 Oxygen Delivery Method Room Air BMI result Body Mass Index 26.9 Course Course Course Narrative: RME performed by Ena Everett PA-C. Patient is a 46 year old female p resenting to the emergency department with abdominal pain, nausea, and vomiting. Patient states that this morning the pain and nausea/vomiting started and it hasn't stopped. Labs, UA, swab ordered. Patient placed back in the waiting room pending results and room availability. Patient was evaluated and discharged by Dr. Henriquez, who created and signed his own note. Medications Administered Discontinued Medications Generic Name Dose Route Start Last Admin Trade Name Freq PRN Reason Stop Dose Admin Sodium Chloride 1,000 mls @ 999 mls/hr 06/19/22 18:45 06/19/22 20:56 Ns IVCONT 06/19/22 19:45 Infused .Q1H1M NAI Infusion Iohexol 100 ml 06/19/22 19:36 06/19/22 19:36 Iohexol 350 Mg/Ml 100 Ml Infus..Btl IV 06/19/22 19:37 85 ml ONCE ONE Administration Morphine Sulfate 4 mg 06/19/22 18:39 06/19/22 19:43 Morphine Sulfate 4 Mg/Ml Cartridge IVPUSH 06/19/22 18:40 4 mg ONCE ONE Administration Protocol Ondansetron HCl 4 mg 06/19/22 18:38 06/19/22 19:43 Ondansetron Hcl 4 Mg/2 Ml Vial IVPUSH 06/19/22 18:39 4 mg ONCE ONE Administration Medical Decision Making Lab Data 06/19/22 18:19 06/19/22 18:19 Labs: Lab Results 06/19/22 06/19/22 06/19/22 Range/Units 18:19 18:19 18:19 WBC 13.2 H (4.8-10.8) X10*3/uL RBC 5.31 (4.20-5.50) X10*6/uL Hgb 15.4 (12.0-16.0) g/dl Hct 46.3 (37.0-47.0) % MCV 87.2 (80.0-98.0) fL MCH 29.0 (27.0-33.0) pg MCHC 33.3 (31.0-35.0) g/dl RDW 12.9 (11.0-16.0) % Plt Count 279 (160-400) X10*3/uL MPV 10.0 (9.4-12.3) fL Immature Gran % (Auto) 0.5 H (0.0-0.4) % Neut % (Auto) 87.5 H (45-73) % Lymph % (Auto) 7.1 L (20-40) % [place] % (Auto) 4.5 (2-11) % Eos % (Auto) 0.2 (0-4) % Baso % (Auto) 0.2 (0-2) % Lymph # (Auto) 0.9 L (1.2-4.9) X10*3/uL [place] # (Auto) 0.6 (0.1-1.2) X10*3/uL Eos # (Auto) 0.0 (0.0-0.4) X10*3/uL Baso # (Auto) 0.0 (0.0-0.2) X10*3/uL Abs Immat Gran (auto) 0.06 H (0.00-0.03) X10*3/uL Absolute Neuts (auto) 11.6 H (2.0-8.3) x10*3/uL Absolute Nucleated RBC 0.000 (0.0-0.012) X10*3/uL Nucleated RBC % (auto) 0.0 (0.0-0.2) /100WBC Sodium 139 (135-145) mmol/L Potassium 4.5 (3.3-5.1) mmol/L Chloride 106 (96-108) mmol/L Carbon Dioxide 24 (22-29) mmol/L Anion Gap 14 (12-20) BUN 21 H (9-16) mg/dL Creatinine 0.72 (0.5-1.4) mg/dL Estim Creat Clear Calc 80.8 Estimated GFR > 60 Random Glucose 113 (60-115) mg/dL Calcium 9.2 (8.4-10.2) mg/dL Magnesium 2.0 (1.6-2.6) mg/dL Total Bilirubin 0.9 (0.0-1.0) mg/dL AST 16 (5-31) U/L ALT 14 (0-31) U/L Alkaline Phosphatase 72 (39-117) U/L Total Protein 7.0 (6.5-8.0) g/dL Albumin 4.2 (3.5-5.0) g/dL Beta HCG, Quant < 2 mIU/mL Urine Color Urine Appearance Urine pH (5.0-9.0) Ur Specific [place] (1.005-1.025) Urine Protein (Neg-Trace) mg/dL Urine Glucose (UA) (Negative) mg/dL Urine Ketones (Negative) mg/dL Urine Blood (Negative) Urine Nitrite (Negative) Ur Leukocyte Esterase (Negative) Influenza Type A (PCR) NEGATIVE (Negative) Influenza Type B (PCR) NEGATIVE (Negative) RSV RNA Qual (PCR) NEGATIVE (Negative) SARS-CoV-2 RNA (RT-PCR) NEGATIVE (Negative) 06/19/22 Range/Units 19:51 WBC (4.8-10.8) X10*3/uL RBC (4.20-5.50) X10*6/uL Hgb (12.0-16.0) g/dl Hct (37.0-47.0) % MCV (80.0-98.0) fL MCH (27.0-33.0) pg MCHC (31.0-35.0) g/dl RDW (11.0-16.0) % Plt Count (160-400) X10*3/uL MPV (9.4-12.3) fL Immature Gran % (Auto) (0.0-0.4) % Neut % (Auto) (45-73) % Lymph % (Auto) (20-40) % [place] % (Auto) (2-11) % Eos % (Auto) (0-4) % Baso % (Auto) (0-2) % Lymph # (Auto) (1.2-4.9) X10*3/uL [place] # (Auto) (0.1-1.2) X10*3/uL Eos # (Auto) (0.0-0.4) X10*3/uL Baso # (Auto) (0.0-0.2) X10*3/uL Abs Immat Gran (auto) (0.00-0.03) X10*3/uL Absolute Neuts (auto) (2.0-8.3) x10*3/uL Absolute Nucleated RBC (0.0-0.012) X10*3/uL Nucleated RBC % (auto) (0.0-0.2) /100WBC Sodium (135-145) mmol/L Potassium (3.3-5.1) mmol/L Chloride (96-108) mmol/L Carbon Dioxide (22-29) mmol/L Anion Gap (12-20) BUN (9-16) mg/dL Creatinine (0.5-1.4) mg/dL Estim Creat Clear Calc Estimated GFR Random Glucose (60-115) mg/dL Calcium (8.4-10.2) mg/dL Magnesium (1.6-2.6) mg/dL Total Bilirubin (0.0-1.0) mg/dL AST (5-31) U/L ALT (0-31) U/L Alkaline Phosphatase (39-117) U/L Total Protein (6.5-8.0) g/dL Albumin (3.5-5.0) g/dL Beta HCG, Quant mIU/mL Urine Color Yellow Urine Appearance Clear Urine pH 7.0 (5.0-9.0) Ur Specific [place] >= 1.030 H (1.005-1.025) Urine Protein Trace (Neg-Trace) mg/dL Urine Glucose (UA) Negative (Negative) mg/dL Urine Ketones 40 (Negative) mg/dL Urine Blood Negative (Negative) Urine Nitrite Negative (Negative) Ur Leukocyte Esterase Negative (Negative) Influenza Type A (PCR) (Negative) Influenza Type B (PCR) (Negative) RSV RNA Qual (PCR) (Negative) SARS-CoV-2 RNA (RT-PCR) (Negative) Discharge Plan Discharge Clinical Impression: Abdominal pain Patient Disposition: Home, Self-Care Instructions: Abdominal Pain (ED) Additional Instructions: FOLLLOW UP WITH PRIMARY CARE RETURN IF WORSE Prescriptions: No Action nitrofurantoin monohyd/m-cryst [Macrobid] 100 mg capsule 100 mg PO Q12H 7 Days Qty: 14 0RF Rx Instructions: must administer with a meal/food naproxen 500 mg tablet 500 mg PO BID PRN (Reason: pain) 10 Days Qty: 20 0RF prednisone 20 mg tablet 40 mg PO DAILY 5 Days Qty: 10 0RF cyclobenzaprine 10 mg tablet 10 mg PO TID PRN (Reason: muscle spasm) 7 Days Qty: 21 0RF Rx Instructions: side effect is drowsiness. Do not take at work or while driving Referrals: Physician,Unknown J [Primary Care Provider] - 3 days Interventions: ED Discharge Assessment Last Done: 06/19/22 23:17 Discharge Date/Time: 06/19/22 23:18
[2022-06-19 17:46] VITALS: PULSE 103; RESP 18; TEMP 36.6; O2SAT 99; BMI 26.9
[2022-06-19 18:23] LABS: MANUAL DIFF FLAG NO
[2022-06-19 18:28] VITALS: BP 129/87; PULSE 97; RESP 16; O2SAT 100
[2022-06-19 18:32] LABS: Basophils Percent Auto 0.2 % (0-2); Eosinophils Percent Auto 0.2 % (0-4); Hematocrit 46.3 % (37.0-47.0); Hemoglobin 15.4 g/dl (12.0-16.0); Imm Gran Abs Auto 0.06 X10*3/uL (0.00-0.03); Imm Gran Pct Auto 0.5 % (0.0-0.4); Lymphocytes Absolute Auto 0.9 X10*3/uL (1.2-4.9); Lymphocytes Percent Auto 7.1 % (20-40); Mean Corpuscular HGB Conc 33.3 g/dl (31.0-35.0); Mean Corpuscular Volume 87.2 fL (80.0-98.0); Monocytes Absolute Auto 0.6 X10*3/uL (0.1-1.2); Monocytes Percent Auto 4.5 % (2-11); Neutrophils Absolute Auto 11.6 x10*3/uL (2.0-8.3); Neutrophils Percent Auto 87.5 % (45-73); Platelet Count 279 X10*3/uL (160-400); Red Blood Count 5.31 X10*6/uL (4.20-5.50); Red Cell Distribution Width 12.9 % (11.0-16.0); White Blood Count 13.2 X10*3/uL (4.8-10.8)
--- NOTE | 2022-06-19 18:47 | ED.ABDPAIN ---
HPI - Abdominal Pain General Chief Complaint: Abdominal Pain Stated Complaint: Abdominal Pain, Nausea, Vomiting Time Seen by Provider: 06/19/22 18:17 Source: patient Mode of arrival: ambulatory Limitations: no limitations History of Present Illness HPI narrative: c/o abdominal pain nausea and vomiting MD elicited complaint: abdominal pain Pertinent past history: none Onset (ago): day(s) (1) Pain Consistency: constant Location: periumbilical Severity: moderate Migration to: no migration Exacerbating factors: nothing Relieving factors: nothing Related Data Previous Rx's Medication Instructions Recorded nitrofurantoin 100 mg PO Q12H 7 days #14 caps 02/15/22 monohydrate/macrocrystals 100 mg capsule (Macrobid) cyclobenzaprine 10 mg tablet 10 mg PO TID PRN muscle spasm 7 06/07/22 days #21 tabs naproxen 500 mg tablet 500 mg PO BID PRN pain 10 days #20 06/07/22 tabs prednisone 20 mg tablet 40 mg PO DAILY 5 days #10 tabs 06/07/22 Allergies Allergy/AdvReac Type Severity Reaction Status Date / Time No Known Allergies Allergy Verified 06/07/22 17:06 [No Known Allergies*] Review of Systems Constitutional: Reports no additional constitutional complaints Eyes: Reports no additional eye complaints Reports system reviewed and no additional complaints, except as documented Cardiovascular: Reports no additional cardiovascular complaints Gastrointestinal: Reports abdominal pain PMFSH Past Medical History PMFSH Narrative: none Medical History delivery delivered Fibroid, uterine Social History Social History Alcohol intake: never Smoked in Last 30 Days: No Use of substances other than those prescribed or required for medical reasons: No Advance Directives: No Advance Directives Information Provided: No Patient : No Physical Exam ED Vital Signs: Vital Signs - 24 hr 06/19/22 17:46 06/19/22 18:28 06/19/22 20:00 Temperature 98 F 99.1 F Pulse Rate 103 H 97 95 Respiratory Rate 18 16 16 Blood Pressure 129/87 121/71 Pulse Oximetry 99 100 98 Oxygen Delivery Method Room Air Room Air Room Air 06/19/22 22:00 Temperature 99.1 F Pulse Rate 91 Respiratory Rate 16 Blood Pressure 117/65 Pulse Oximetry 98 Oxygen Delivery Method Room Air BMI result Body Mass Index 26.9 Const General: cooperative Nutritional Appearance: average body habitus Orientation/consciousness: patient oriented x3 Limitations: no limitations HENMT Head: Yes normal to inspection Ears: hearing grossly normal bilaterally General nose exam: Normal external nose present Face and sinus: Yes normal facial exam Mouth: Normal oral and palatal mucosa present Throat: Yes posterior oropharynx normal Chest Chest palpation & inspection: normal inspection of the chest Resp Effort & Inspection: normal respiratory effort and able to speak in complete sentences Auscultation: clear to auscultation bilaterally Cardio Jugular venous distension: no JVD Rate: regular rate GI Palpation (GI): Tenderness to palpation present (GI) (epigastric area) Auscultation: normal bowel sounds Skin General skin exam: no rashes or lesions noted, elasticity normal and turgor normal Lesions: no lesions Rashes: no rashes Neuro General: patient oriented x3 Course Reevaluation(s) Reevaluation #1: AT THIS TIME THE PATIENT IS FEELING MUCH BETTER SHE HAS NO SYMPTOMS WILL DISCHARGE HOME CT SCAN WAS NEGATIVE Time: 22:24 Medical Decision Making Medical Decision Making [facility] Narrative: 46 years old female presented with abdominal pain we get the labs CT and reassess Differential Diagnosis Differential Diagnoses: The differential diagnosis associated with the presentation includes colitis /diverticulitis/sbo Admission/Observation Consideration of admission/observation: Escalation of care including admission/observation considered Lab Data [facility] Lab Attestation statement: I reviewed the patient's lab results. 06/19/22 18:19 06/19/22 18:19 Labs: Lab Results 06/19/22 06/19/22 06/19/22 Range/Units 18:19 18:19 18:19 WBC 13.2 H (4.8-10.8) X10*3/uL RBC 5.31 (4.20-5.50) X10*6/uL Hgb 15.4 (12.0-16.0) g/dl Hct 46.3 (37.0-47.0) % MCV 87.2 (80.0-98.0) fL MCH 29.0 (27.0-33.0) pg MCHC 33.3 (31.0-35.0) g/dl RDW 12.9 (11.0-16.0) % Plt Count 279 (160-400) X10*3/uL MPV 10.0 (9.4-12.3) fL Immature Gran % (Auto) 0.5 H (0.0-0.4) % Neut % (Auto) 87.5 H (45-73) % Lymph % (Auto) 7.1 L (20-40) % [place] % (Auto) 4.5 (2-11) % Eos % (Auto) 0.2 (0-4) % Baso % (Auto) 0.2 (0-2) % Lymph # (Auto) 0.9 L (1.2-4.9) X10*3/uL [place] # (Auto) 0.6 (0.1-1.2) X10*3/uL Eos # (Auto) 0.0 (0.0-0.4) X10*3/uL Baso # (Auto) 0.0 (0.0-0.2) X10*3/uL Abs Immat Gran (auto) 0.06 H (0.00-0.03) X10*3/uL Absolute Neuts (auto) 11.6 H (2.0-8.3) x10*3/uL Absolute Nucleated RBC 0.000 (0.0-0.012) X10*3/uL Nucleated RBC % (auto) 0.0 (0.0-0.2) /100WBC Sodium 139 (135-145) mmol/L Potassium 4.5 (3.3-5.1) mmol/L Chloride 106 (96-108) mmol/L Carbon Dioxide 24 (22-29) mmol/L Anion Gap 14 (12-20) BUN 21 H (9-16) mg/dL Creatinine 0.72 (0.5-1.4) mg/dL Estim Creat Clear Calc 80.8 Estimated GFR > 60 Random Glucose 113 (60-115) mg/dL Calcium 9.2 (8.4-10.2) mg/dL Magnesium 2.0 (1.6-2.6) mg/dL Total Bilirubin 0.9 (0.0-1.0) mg/dL AST 16 (5-31) U/L ALT 14 (0-31) U/L Alkaline Phosphatase 72 (39-117) U/L Total Protein 7.0 (6.5-8.0) g/dL Albumin 4.2 (3.5-5.0) g/dL Beta HCG, Quant < 2 mIU/mL Urine Color Urine Appearance Urine pH (5.0-9.0) Ur Specific [place] (1.005-1.025) Urine Protein (Neg-Trace) mg/dL Urine Glucose (UA) (Negative) mg/dL Urine Ketones (Negative) mg/dL Urine Blood (Negative) Urine Nitrite (Negative) Ur Leukocyte Esterase (Negative) Influenza Type A (PCR) NEGATIVE (Negative) Influenza Type B (PCR) NEGATIVE (Negative) RSV RNA Qual (PCR) NEGATIVE (Negative) SARS-CoV-2 RNA (RT-PCR) NEGATIVE (Negative) 06/19/22 Range/Units 19:51 WBC (4.8-10.8) X10*3/uL RBC (4.20-5.50) X10*6/uL Hgb (12.0-16.0) g/dl Hct (37.0-47.0) % MCV (80.0-98.0) fL MCH (27.0-33.0) pg MCHC (31.0-35.0) g/dl RDW (11.0-16.0) % Plt Count (160-400) X10*3/uL MPV (9.4-12.3) fL Immature Gran % (Auto) (0.0-0.4) % Neut % (Auto) (45-73) % Lymph % (Auto) (20-40) % [place] % (Auto) (2-11) % Eos % (Auto) (0-4) % Baso % (Auto) (0-2) % Lymph # (Auto) (1.2-4.9) X10*3/uL [place] # (Auto) (0.1-1.2) X10*3/uL Eos # (Auto) (0.0-0.4) X10*3/uL Baso # (Auto) (0.0-0.2) X10*3/uL Abs Immat Gran (auto) (0.00-0.03) X10*3/uL Absolute Neuts (auto) (2.0-8.3) x10*3/uL Absolute Nucleated RBC (0.0-0.012) X10*3/uL Nucleated RBC % (auto) (0.0-0.2) /100WBC Sodium (135-145) mmol/L Potassium (3.3-5.1) mmol/L Chloride (96-108) mmol/L Carbon Dioxide (22-29) mmol/L Anion Gap (12-20) BUN (9-16) mg/dL Creatinine (0.5-1.4) mg/dL Estim Creat Clear Calc Estimated GFR Random Glucose (60-115) mg/dL Calcium (8.4-10.2) mg/dL Magnesium (1.6-2.6) mg/dL Total Bilirubin (0.0-1.0) mg/dL AST (5-31) U/L ALT (0-31) U/L Alkaline Phosphatase (39-117) U/L Total Protein (6.5-8.0) g/dL Albumin (3.5-5.0) g/dL Beta HCG, Quant mIU/mL Urine Color Yellow Urine Appearance Clear Urine pH 7.0 (5.0-9.0) Ur Specific [place] >= 1.030 H (1.005-1.025) Urine Protein Trace (Neg-Trace) mg/dL Urine Glucose (UA) Negative (Negative) mg/dL Urine Ketones 40 (Negative) mg/dL Urine Blood Negative (Negative) Urine Nitrite Negative (Negative) Ur Leukocyte Esterase Negative (Negative) Influenza Type A (PCR) (Negative) Influenza Type B (PCR) (Negative) RSV RNA Qual (PCR) (Negative) SARS-CoV-2 RNA (RT-PCR) (Negative) Independent Interpretation I performed an independent interpretation of an: CT Scan Interpretation: NEGATIVE Radiology Impression Discussion of test interpretation with radiology: I have reviewed the radiologist's reading. Radiologist Impression: ey. No caliectasis or hydronephrosis seen.? BLADDER: Unremarkable.? GASTROINTESTINAL TRACT: There is large amount of stool seen in the colon without any significant distention. The small bowel loops are normal caliber. Appendix is not visualized.? ABDOMINAL WALL: No significant hernia is appreciated.? LYMPH NODES: Normal. VASCULAR: The abdominal aorta is normal caliber. PELVIC VISCERA: The uterus is anteverted and slightly bulky. No focal lesion seen. There is no free fluid. No abnormal pelvic or inguinal lymph nodes seen. There is no free fluid.? OSSEOUS STRUCTURES: No aggressive lytic or sclerotic process seen.? CT/CT abdomen pelvis w IV con IMPRESSION: No acute intra-abdominal process seen ? Nonobstructive bilateral upper pole renal calculi. ? Anteverted bulky uterus. ? Fleischner guidelines were followed. Medications Administered Discontinued Medications Generic Name Dose Route Start Last Admin Trade Name Freq PRN Reason Stop Dose Admin Sodium Chloride 1,000 mls @ 999 mls/hr 06/19/22 18:45 06/19/22 20:56 Ns IVCONT 06/19/22 19:45 Infused .Q1H1M NAI Infusion Iohexol 100 ml 06/19/22 19:36 06/19/22 19:36 Iohexol 350 Mg/Ml 100 Ml Infus..Btl IV 06/19/22 19:37 85 ml ONCE ONE Administration Morphine Sulfate 4 mg 06/19/22 18:39 06/19/22 19:43 Morphine Sulfate 4 Mg/Ml Cartridge IVPUSH 06/19/22 18:40 4 mg ONCE ONE Administration Protocol Ondansetron HCl 4 mg 06/19/22 18:38 06/19/22 19:43 Ondansetron Hcl 4 Mg/2 Ml Vial IVPUSH 06/19/22 18:39 4 mg ONCE ONE Administration Discharge Plan Discharge Clinical Impression: Abdominal pain Patient Disposition: Home, Self-Care Instructions: Abdominal Pain (ED) Additional Instructions: FOLLLOW UP WITH PRIMARY CARE RETURN IF WORSE Prescriptions: No Action nitrofurantoin monohyd/m-cryst [Macrobid] 100 mg capsule 100 mg PO Q12H 7 Days Qty: 14 0RF Rx Instructions: must administer with a meal/food naproxen 500 mg tablet 500 mg PO BID PRN (Reason: pain) 10 Days Qty: 20 0RF prednisone 20 mg tablet 40 mg PO DAILY 5 Days Qty: 10 0RF cyclobenzaprine 10 mg tablet 10 mg PO TID PRN (Reason: muscle spasm) 7 Days Qty: 21 0RF Rx Instructions: side effect is drowsiness. Do not take at work or while driving Referrals: Physician,Unknown J [Primary Care Provider] - 3 days
[2022-06-19 18:56] LABS: Alanine Aminotransferase 14 U/L (0-31); Albumin Level 4.2 g/dL (3.5-5.0); Alkaline Phosphatase 72 U/L (39-117); Anion Gap 14 (12-20); Aspartate Amino Transferase 16 U/L (5-31); Bilirubin Total 0.9 mg/dL (0.0-1.0); Blood Urea Nitrogen 21 mg/dL (9-16); Calcium 9.2 mg/dL (8.4-10.2); Carbon Dioxide 24 mmol/L (22-29); Chloride 106 mmol/L (96-108); Creatinine Clr Calc Pharmacy 80.8; Estimated Glomerular Filt Rate > 60; Glucose Random 113 mg/dL (60-115); HCG Quantitative < 2 mIU/mL; Potassium 4.5 mmol/L (3.3-5.1); Sodium 139 mmol/L (135-145)
[2022-06-19 19:03] LABS: Influenza A PCR NEGATIVE (Negative); Influenza B PCR NEGATIVE (Negative); Resp Syncy Virus RNA Qual PCR NEGATIVE (Negative); SARS COV2 PCR INHOUSE NEGATIVE (Negative)
[2022-06-19] MEDS: iohexoL 350 MG/ML 100 ML INFUS..BTL IV (19:36)
[2022-06-19] MEDS: Morphine Sulfate 4 MG/ML CARTRIDGE IVPUSH (19:43)
[2022-06-19] MEDS: ondansetron HCL 4 MG/2 ML VIAL IVPUSH (19:43)
[2022-06-19] MEDS: 0.9 % Sodium Chloride 1,000 ML 999 ML IVCONT (19:48)
[2022-06-19 19:59] LABS: Appearance Urine Clear; Color Urine Yellow; Glucose Urine UA Negative (Negative); Leukocyte Esterase Urine Negative (Negative); Nitrite Urine Negative (Negative); Specific Gravity - Urine >= 1.030 (1.005-1.025); Urine Blood Negative (Negative); Urine Ketones 40 mg/dL (Negative); Urine Protein Trace mg/dL (Neg-Trace)
[2022-06-19 20:00] VITALS: BP 121/71; PULSE 95; RESP 16; TEMP 37.3; O2SAT 98
--- NOTE | 2022-06-19 20:09 | PC.NURSE ---
this rn assumed care of pt @ 1900. pt at bedside at this time. pt medicated according to jul. urine sample obtained at this time. sample sent down to lab.
--- NOTE | 2022-06-19 20:17 | MHC.EDTECH ---
THIS PCT ASSUMED CARE OF PT AT 1900 ,PATIENT VITALS SIGN TAKEN ,PATIENT WATCHING TELEVISION ,PT BOYFRIEND AT BEDSIDE .
--- NOTE | 2022-06-19 21:19 | PC.NURSE ---
pt at bedside at this time. pt ambulated independently to restroom. pt reports no pain and no nausea at this time while ambulating
[2022-06-19 22:00] VITALS: BP 117/65; PULSE 91; RESP 16; TEMP 37.3; O2SAT 98
--- NOTE | 2022-06-19 23:15 | PC.NURSE ---
pt at bedside at time of discharge. iv removed at this time. pt provided with discharge packet. ot and verbalized understanding of discharge plan.
== END 2022-06-19 23:18 | disposition home or self-care (01) ==
PROVIDERS: Physician Assistant Medical; Emergency Provider Emergency Medicine
DX: R10.9 Unspecified abdominal pain (principal); Z20.822 Contact with and (suspected) exposure to COVID-19; Z20.828 Contact with and (suspected) exposure to other viral communicable diseases; Z79.899 Other long term (current) drug therapy
CPT/HCPCS: 0241U; 36415; 74177; 80053; 81003; 83735; 84702; 85025; 96361; 96374; 96375; 99284; J2270; J2405; Q9967

== ENCOUNTER 2022-06-30 15:30 | Outpatient (REF) | payer OTHER, SELFPAY ==
[2022-06-30 17:30] LABS: Lipase 43 U/L (8-78)
[2022-07-01 22:33] LABS: Transglutaminase Ab IgG <1.0 U/mL; Transglutaminase IgA <1.0 U/mL
[2022-07-03 11:27] LABS: H Pylori Breath Test Negative (Negative)
== END 2022-06-30 15:31 | disposition home or self-care (01) ==
LOC: HO.LAB 15:30
PROVIDERS: PCP Internal Medicine; Visit Provider Nurse Practitioner Family
DX: R10.9 Unspecified abdominal pain (principal); R14.0 Abdominal distension (gaseous); K58.9 Irritable bowel syndrome, unspecified; K21.9 Gastro-esophageal reflux disease without esophagitis
CPT/HCPCS: 36415; 83013; 83690; 86364; 99202

== ENCOUNTER 2022-07-01 15:50 | Outpatient (REF) | payer OTHER, SELFPAY | END 2022-07-01 15:51 | disposition home or self-care (01) | LOC: HO.LNP 15:50 | PROVIDERS: Visit Provider Nurse Practitioner Family | DX: Z13.89 Encounter for screening for other disorder (principal) ==

== ENCOUNTER 2023-05-06 14:12 | Outpatient (REF) | payer OTHER, SELFPAY ==
[2023-05-06 18:49] LABS: Influenza A PCR NEGATIVE (Negative); Influenza B PCR NEGATIVE (Negative); Resp Syncy Virus RNA Qual PCR NEGATIVE (Negative); SARS COV2 PCR INHOUSE NEGATIVE (Negative)
== END 2023-05-06 14:13 | disposition home or self-care (01) ==
LOC: HO.CHCLNP 14:12
PROVIDERS: Visit Provider Pediatrics
DX: Z11.52 Encounter for screening for COVID-19 (principal); J06.9 Acute upper respiratory infection, unspecified
CPT/HCPCS: 0241U; 87070

== ENCOUNTER 2023-08-31 10:36 | Outpatient (REF) | payer OTHER, SELFPAY ==
--- NOTE | ~2023-08-31 | MM_ITS ---
EXAMINATION: MM SCREENING DIGITAL BREAST TOMOSYNTHESIS, BILATERAL CLINICAL INFORMATION: Screening. Asymptomatic. COMPARISON: Mammography: This study is compared with prior exams dating back to 2018. TECHNIQUE: Digital breast tomosynthesis is performed in both the craniocaudal and mediolateral oblique views along with computer-aided detection (CAD). Synthesized 2D images are generated from the tomosynthesis. FINDINGS: There are scattered areas of fibroglandular density (ACR BI-RADS breast composition Category b). There are no significant masses, abnormal calcifications, or other abnormalities. There is a biopsy tissue marker associated with a small, mammographically benign mass in the upper outer quadrant of the left breast. MM/MM tomosynthesis screening BI IMPRESSION: No mammographic evidence of malignancy. ASSESSMENT: BI-RADS BI-RADS 2 - Benign Findings RECOMMENDATION: Routine annual mammography screening. 1 year F/U This examination should not preclude the clinical evaluation of a suspicious palpable abnormality. This patient's information was entered into a reminder system with a target due date for their next mammogram.
== END 2023-08-31 10:37 | disposition home or self-care (01) ==
LOC: HO.MAMMO 10:36
PROVIDERS: PCP Internal Medicine; Visit Provider Internal Medicine
DX: Z12.31 Encounter for screening mammogram for malignant neoplasm of breast (principal)
CPT/HCPCS: 77063; 77067

== ENCOUNTER → 2023-08-31 11:00 | Outpatient (BNV) | payer OTHER, SELFPAY | PROVIDERS: PCP Internal Medicine; Visit Provider Radiology Diagnostic Radiology | DX: Z12.31 Encounter for screening mammogram for malignant neoplasm of breast (principal) | CPT/HCPCS: 77063; 77067 ==

== ENCOUNTER 2023-09-24 19:14 | Emergency (ER) | payer OTHER, SELFPAY ==
[2023-09-24 19:15] VITALS: BP 180/107; PULSE 98; RESP 18; TEMP 36.2; O2SAT 98; BMI 27.3
--- NOTE | 2023-09-24 19:16 | ED.GENADULT ---
HPI - General Adult General Chief complaint: General Medical Stated complaint: high blood pressure Time Seen by Provider: 09/24/23 21:12 Source: patient and family Mode of arrival: ambulatory Limitations: no limitations History of Present Illness HPI narrative: Patient comes to the emergency room complaining of high blood pressure. Patient states that in the past she used to take hydrochlorothiazide 12.5 mg, stopped taking it because she lost a lot of weight and they hydrochlorothiazide was making her hypotensive. Patient states that recently she started getting weight. Earlier today patient had a bit of a headache, muscle tightness in the back of the neck. Denies visual changes, no chest pain or shortness of breath. Patient states that she checked her blood pressure was 180/107. Throughout the day, patient has been checking her blood pressure and it has been up to 157 systolic. At this time, patient has no headache. Related Data Previous Rx's ?Medication ?Instructions ?Recorded omeprazole 20 mg capsule,delayed 20 mg PO DAILY #30 caps 06/30/22 release lisinopril 5 mg tablet 5 mg PO DAILY #30 tabs 09/24/23 Allergies Allergy/AdvReac Type Severity Reaction Status Date / Time No Known Allergies Allergy Verified 09/24/23 19:23 [No Known Allergies*] Review of Systems Review of Systems: Constitutional : No Weight loss, No Fever, No Chills, No Night Sweats, No Fatigue, No Malaise ENT/Mouth : No Hearing loss, No Ear Pain, No Nasal Congestion, No Sinus Pain, No Hoarseness, No sore throat, No Rhinorrhea, No Swallowing Difficulty Eyes: No Eye Pain, No Swelling, No Redness, No Foreign Body, No Discharge, No Vision Changes Cardiovascular : No Chest Pain, No SOB, No Dyspnea on Exertion, No Orthopnea, No Edema, No Palpitations, complaining of high blood pressure read Respiratory : No Cough, No Sputum, No Wheezing, No Smoke Exposure, No Dyspnea Gastrointestinal : No Nausea, No Vomiting, No Diarrhea, No Constipation, No abdominal Pain, No Hematochezia, No Melena Genitourinary : no irregular bleeding, No Dysuria, No Urinary Frequency, No Hematuria, No Urinary Incontinence, No Urgency, No Flank Pain, No Urinary Flow Changes, No Hesitancy Musculoskeletal : No joint pain, No Myalgias, No Joint Swelling Skin : No Skin Lesions, No rash Neuro : No Weakness, No Numbness, No Paresthesias, No Loss of Consciousness, No Dizziness, earlier today patient had a Headache Psych : No Anxiety/Panic, No Depression, No SI/HI/AH/VH, No Social Issues, Heme/Lymph: No Bruising, No Bleeding,No Lymphadenopathy Endocrine : No Polyuria, No Polydipsia, No Temperature Intolerance PMF Past Medical History Medical History Fibroid, uterine delivery delivered Social History Social History Alcohol intake: never Advance Directives: No Advance Directives Information Provided: No Do you have a plan to hurt others: No Plan Physical Exam ED Vital Signs: Vital Signs - 24 hr 09/24/23 19:15 Temperature 97.2 F Pulse Rate 98 Respiratory Rate 18 Blood Pressure 180/107 H Pulse Oximetry 98 Oxygen Delivery Method Room Air BMI result Body Mass Index 27.3 Const Other: Appearance: Alert. Oriented X3. No acute distress. Eyes: Pupils equal, round and reactive to light. ENT: Pharynx normal. Neck: Normal inspection. Neck supple. No lymph nodes noted. No crepitus CVS: Normal heart rate and rhythm. Pulses normal. Normal S1 and S2 Respiratory: No respiratory distress. Breath sounds normal. No Wheezing. No rales Abdomen: Soft and nontender. No rigidity. No distention. Skin: Skin warm and dry. Normal skin color. Normal skin turgor. Extremities: No lower extremity edema. No Lacerations. No Rash Neuro: Oriented X 3. No motor deficit. No sensory deficit. Moving all extremities. No slurred speech. CN 2 through 12 grossly intact Psych: calm, cooperative, normal affect Course Course Course Narrative: This is a rapid medical exam performed by Jay Jay Solis NP: Additional HPI, ROS, PE not included below will be deferred to primary provider. Patient is a 47-year-old [place] Citizen speaking female presenting to the emergency department with complaint of high blood pressure. She is not currently on antihypertensive medication. She checks her BP at home regularly. She was previously on HCTZ 1.5 yrs ago, but after losing 15kg, she stopped the medication herself because her BPs were becoming too low around 1 yr ago. States she has since regained this weight. BP 180-107 in triage, mildly tachycardic. No focal deficits. Complains of headaches but denies current headache, nausea, denies visual changes. States she ate a salty meat before she noted elevated BP. Plan: EKG, labs UA Medical Decision Making Medical Decision Making [facility] Narrative: -my interpretation of labs: Normal hematology and chemistry -my interpretation of EKG: Normal sinus rhythm, heart rate 85, no ST segment depression or elevation, nonspecific T-wave inversion in lead 3, QTC 435 -after a prolonged discussion with the patient regarding high blood pressure medication. We decided that it would be best to start with lisinopril 5 mg. Last time that patient was on hydrochlorothiazide, 12.5, patient's blood pressure dropped significantly. Patient is actively trying to lose weight. Discussed with the patient that it would be best to start her on lisinopril which is a lower dose and can be titrated upwards if needed. -patient and her agree with plan. They will follow-up with her primary care physician. First dose given in the ED Differential Diagnosis Differential Diagnoses: The differential diagnosis associated with the presentation includes (Hypertension) Lab Data [facility] Lab Attestation statement: I reviewed the patient's lab results. 09/24/23 19:38 09/24/23 19:38 Labs: Lab Results 09/24/23 Range/Units 19:38 WBC 9.1 (4.8-10.8) X10*3/uL RBC 4.73 (4.20-5.50) X10*6/uL Hgb 13.8 (12.0-16.0) g/dl Hct 41.0 (37.0-47.0) % MCV 86.7 (80.0-98.0) fL MCH 29.2 (27.0-33.0) pg MCHC 33.7 (31.0-35.0) g/dl RDW 12.3 (11.0-16.0) % Plt Count 288 (160-400) X10*3/uL MPV 9.5 (9.4-12.3) fL Immature Gran % (Auto) 0.2 (0.0-0.4) % Neut % (Auto) 45.9 (45-73) % Lymph % (Auto) 44.0 H (20-40) % [place] % (Auto) 7.3 (2-11) % Eos % (Auto) 2.1 (0-4) % Baso % (Auto) 0.5 (0-2) % Lymph # (Auto) 4.0 (1.2-4.9) X10*3/uL [place] # (Auto) 0.7 (0.1-1.2) X10*3/uL Eos # (Auto) 0.2 (0.0-0.4) X10*3/uL Baso # (Auto) 0.1 (0.0-0.2) X10*3/uL Abs Immat Gran (auto) 0.02 (0.00-0.03) X10*3/uL Absolute Neuts (auto) 4.2 (2.0-8.3) x10*3/uL Absolute Nucleated RBC 0.000 (0.0-0.012) X10*3/uL Nucleated RBC % (auto) 0.0 (0.0-0.2) /100WBC Sodium 141 (135-145) mmol/L Potassium 3.4 (3.3-5.1) mmol/L Chloride 106 (96-108) mmol/L Carbon Dioxide 24 (22-29) mmol/L Anion Gap 14 (12-20) BUN 25 H (9-16) mg/dL Creatinine 0.88 (0.5-1.4) mg/dL Estim Creat Clear Calc 74.1 Estimated GFR > 60 Random Glucose 113 (60-115) mg/dL Calcium 9.8 D (8.4-10.2) mg/dL Total Bilirubin 0.2 (0.0-1.0) mg/dL AST 18 (5-31) U/L ALT 17 (0-31) U/L Alkaline Phosphatase 80 (39-117) U/L Total Protein 7.4 (6.5-8.0) g/dL Albumin 4.1 (3.5-5.0) g/dL Beta HCG, Quant < 2 mIU/mL Independent Interpretation I performed an independent interpretation of an: EKG Critical Care Time Critical Care Time Critical Care Time: Yes Total Critical Care Time: 35 Attestation: I have personally provided critical care time. Time includes review of lab data, radiology results, discussion with consultants, and monitoring for potential decompensation. Intervention performed as documented. Discharge Plan Discharge Clinical Impression: Hypertension Patient Disposition: Home, Self-Care Instructions: Hypertension (ED) Additional Instructions: This keep a log of your blood pressure and shared with your primary care physician. Please follow-up with your primary care physician tomorrow. If you have any worsening or new symptoms, please return to the emergency room or call 911 Prescriptions: New lisinopril 5 mg tablet 5 mg PO DAILY Qty: 30 1RF No Action omeprazole 20 mg capsule,delayed release(DR/EC) 20 mg PO DAILY Qty: 30 2RF Print Language: [place] Citizen
--- NOTE | 2023-09-24 19:20 | ECG_ITS ---
Test Reason : HIGH BLOOD PRESSURE Blood Pressure : / mmHG Vent. Rate : 085 BPM Atrial Rate : 085 BPM P-R Int : 150 ms QRS Dur : 088 ms QT Int : 366 ms P-R-T Axes : 055 004 027 degrees QTc Int : 435 ms Normal sinus rhythm Possible Left atrial enlargement Minimal voltage criteria for LVH, may be normal variant ( R in aVL ) Borderline ECG When compared with ECG of 15-FEB-2022 20:17, No significant change was found Referred By: Beth Solis Electronically Signed By:KEVAN SOTELO
[2023-09-24 19:41] LABS: MANUAL DIFF FLAG NO
[2023-09-24 19:44] LABS: Basophils Absolute Auto 0.1 X10*3/uL (0.0-0.2); Basophils Percent Auto 0.5 % (0-2); Eosinophils Absolute Auto 0.2 X10*3/uL (0.0-0.4); Eosinophils Percent Auto 2.1 % (0-4); Hemoglobin 13.8 g/dl (12.0-16.0); Imm Gran Abs Auto 0.02 X10*3/uL (0.00-0.03); Imm Gran Pct Auto 0.2 % (0.0-0.4); Mean Corpuscular HGB Conc 33.7 g/dl (31.0-35.0); Mean Corpuscular Hemoglobin 29.2 pg (27.0-33.0); Mean Corpuscular Volume 86.7 fL (80.0-98.0); Mean Platelet Volume 9.5 fL (9.4-12.3); Monocytes Absolute Auto 0.7 X10*3/uL (0.1-1.2); Monocytes Percent Auto 7.3 % (2-11); Neutrophils Absolute Auto 4.2 x10*3/uL (2.0-8.3); Neutrophils Percent Auto 45.9 % (45-73); Platelet Count 288 X10*3/uL (160-400); Red Blood Count 4.73 X10*6/uL (4.20-5.50); Red Cell Distribution Width 12.3 % (11.0-16.0); White Blood Count 9.1 X10*3/uL (4.8-10.8)
[2023-09-24 20:10] LABS: Alanine Aminotransferase 17 U/L (0-31); Albumin Level 4.1 g/dL (3.5-5.0); Alkaline Phosphatase 80 U/L (39-117); Anion Gap 14 (12-20); Aspartate Amino Transferase 18 U/L (5-31); Bilirubin Total 0.2 mg/dL (0.0-1.0); Blood Urea Nitrogen 25 mg/dL (9-16); Calcium 9.8 mg/dL (8.4-10.2); Carbon Dioxide 24 mmol/L (22-29); Chloride 106 mmol/L (96-108); Creatinine Clr Calc Pharmacy 74.1; Estimated Glomerular Filt Rate > 60; Glucose Random 113 mg/dL (60-115); Potassium 3.4 mmol/L (3.3-5.1); Sodium 141 mmol/L (135-145); Total Protein 7.4 g/dL (6.5-8.0)
[2023-09-24 20:13] LABS: HCG Quantitative < 2 mIU/mL
[2023-09-24 21:45] VITALS: BP 153/100
[2023-09-24] MEDS: lisinopriL 5 MG TABLET PO (21:45)
[2023-09-24 21:56] VITALS: BP 153/100; PULSE 98; RESP 18; TEMP 36.2; O2SAT 98
== END 2023-09-24 21:57 | disposition home or self-care (01) ==
PROVIDERS: Registered Nurse Emergency; Emergency Provider Emergency Medicine; PCP Internal Medicine
DX: I10 Essential (primary) hypertension (principal)
CPT/HCPCS: 36415; 80053; 84702; 85025; 93005; 99283; 99284

== ENCOUNTER → 2023-09-24 19:20 | Outpatient (BNV) | payer OTHER, SELFPAY | PROVIDERS: Emergency Provider Emergency Medicine; PCP Internal Medicine; Visit Provider Internal Medicine | DX: R03.0 Elevated blood-pressure reading, without diagnosis of hypertension (principal) | CPT/HCPCS: 93010 ==

== ENCOUNTER 2023-12-22 10:15 | Outpatient (REF) | payer OTHER, SELFPAY ==
[2023-12-22 14:37] LABS: MANUAL DIFF FLAG NO
[2023-12-22 14:42] LABS: Basophils Percent Auto 0.4 % (0-2); Eosinophils Absolute Auto 0.1 X10*3/uL (0.0-0.4); Eosinophils Percent Auto 0.9 % (0-4); Hematocrit 44.3 % (37.0-47.0); Hemoglobin 14.3 g/dl (12.0-16.0); Imm Gran Abs Auto 0.02 X10*3/uL (0.00-0.03); Imm Gran Pct Auto 0.3 % (0.0-0.4); Lymphocytes Percent Auto 43.1 % (20-40); Mean Corpuscular HGB Conc 32.3 g/dl (31.0-35.0); Mean Corpuscular Hemoglobin 28.4 pg (27.0-33.0); Mean Corpuscular Volume 87.9 fL (80.0-98.0); Mean Platelet Volume 10.3 fL (9.4-12.3); Monocytes Absolute Auto 0.6 X10*3/uL (0.1-1.2); Monocytes Percent Auto 8.3 % (2-11); Neutrophils Absolute Auto 3.3 x10*3/uL (2.0-8.3); Platelet Count 274 X10*3/uL (160-400); Red Blood Count 5.04 X10*6/uL (4.20-5.50); Red Cell Distribution Width 12.8 % (11.0-16.0)
[2023-12-22 15:04] LABS: Alanine Aminotransferase 13 U/L (0-31); Albumin Level 4.2 g/dL (3.5-5.0); Alkaline Phosphatase 66 U/L (39-117); Anion Gap 10 (12-20); Aspartate Amino Transferase 18 U/L (5-31); Bilirubin Total 0.7 mg/dL (0.0-1.0); Blood Urea Nitrogen 20 mg/dL (9-16); Calcium 9.6 mg/dL (8.4-10.2); Carbon Dioxide 26 mmol/L (22-29); Chloride 106 mmol/L (96-108); Cholesterol 193 mg/dL (<200); Estimated Glomerular Filt Rate > 60; Glucose Random 101 mg/dL (60-115); HDL Cholesterol 52 mg/dL (>40); LDL Cholesterol Calculated 126 mg/dL (<100); Potassium 4.6 mmol/L (3.3-5.1); Sodium 137 mmol/L (135-145); Total Protein 7.3 g/dL (6.5-8.0); Triglycerides 75 mg/dL (<150)
[2023-12-22 15:26] LABS: TSH reflex Free T4 1.54 uIU/mL (0.32-4.0)
[2023-12-23 08:04] LABS: Follicle Stimulating Hormone 3.9 mIU/mL
[2023-12-29 00:35] LABS: Estradiol Ultra Sensitive 89 pg/mL
== END 2023-12-22 10:16 | disposition home or self-care (01) ==
LOC: HO.CHCLDS 10:15
PROVIDERS: Visit Provider Family Medicine
DX: N94.3 Premenstrual tension syndrome (principal); I10 Essential (primary) hypertension
CPT/HCPCS: 36415; 80053; 80061; 82670; 83001; 83002; 84443; 85025

== ENCOUNTER 2024-04-13 15:26 | Outpatient (REF) | payer OTHER, SELFPAY ==
[2024-04-13 19:29] LABS: Influenza A PCR NEGATIVE (Negative); Influenza B PCR NEGATIVE (Negative); Resp Syncy Virus RNA Qual PCR NEGATIVE (Negative); SARS COV2 PCR INHOUSE NEGATIVE (Negative)
== END 2024-04-13 15:27 | disposition home or self-care (01) ==
LOC: HO.CHCLNP 15:26
PROVIDERS: Visit Provider Family Medicine
DX: J06.9 Acute upper respiratory infection, unspecified (principal)
CPT/HCPCS: 0241U

== ENCOUNTER 2024-10-12 13:01 | Outpatient (REF) | payer OTHER, SELFPAY ==
--- OUTSIDE RECORDS SUMMARY | 2024-10-12 13:04 | XMS_ITS | Encounter Summary ---
Author Organization [employer] Address [address] [place] [address] [address] [place] [address] Care Team Providers Care Recovery Engineer Name Role Phone Terrance Bates MD Primary Care Prov ider Megan Gallardo MD Primary Care Provider [phone] Encounter Details Date Type Department Care Team (Late st Contact Info) Description 07/31/2022 Orders Only [facility] [address] [place] [address] Cathi Barnett LPN Social History Tobacco Use Types Packs/Day Years Used Date Smoking Tobacco: Never Assessed Comments Unknown Sex and Gender Information Value Date Recorded Sex Assigned at Female 03/23/2022 10:21 AM EDT Legal Sex Female 10:21 AM EDT Gender Identity Female 03/23/2022 10:21 AM EDT Sexual Orientation Straight 03/23/2022 10 :21 AM EDT documented as of this encounter Plan of Treatment Not on file documented as of this encounter Visit Diagnoses Not on filedocumented in this encounter Care Teams Recovery Engineer Relationship Specialty Start Date End Date Terrance Bates MD [address] [place] [address] PCP - General Internal Medicine 10/17/19 12/16/23 Megan Gallardo MD [address] [place] [address] PCP - General Family Medicine 12/17/23 documented as of this encounter
--- OUTSIDE RECORDS SUMMARY | 2024-10-12 13:04 | XMS_ITS | Clinical Summary ---
Author Organization [employer] Address [address] [place] [address] Care Team Providers Care Supplies Packer Name Role Phone Megan Gallardo MD Primary Care Provider [phone] Allergies Active Allergy Reactions Criticality Noted Date Comments Lisinopril 04/13/2024 Medications amLODIPine (Norvasc) 10 MG tablet Take 1 tablet (10 mg) by mouth Once per day. 90 tablet 1 05/12/2024 Active Active Problems Problem Noted Date Diagnosed Date Dietary counseling 12/17/2023 Overweight 12/17/2023 Assessment & Plan (12/17/2023 1:48 PM EDT): Discussed calorie deficit, recommended reduction of 20-30% of maintenance calories; cryolite recovery operator referral offered. Recommended to decrease soda and sugary beverage consumption. Recommended at least 20 g per meal of protein to assist with satiety. Recommended at least 150 min/week of moderate intensity exercise. Premenstrual symptom 12/17/2023 Assessment & Plan (12/17/2023 2:37 PM EDT): Regular periods, considered SSRI/SNRI concern of sexual side effects, will treat decr libido w/ wellbutrin. Rtc in 3 months Primary hypertension 09/27/2023 Assessment & Plan (05/12/2024 1:45 PM EST): Nursing Visit Instructions: - If SBP < 140/DBP <90 mmHg in more than 75% of home self-monitoring, continue current medication regimen and make f/u with PCP in 3 month - If SBP >140-165/DBP >90-115 mmHg , add hydrochlorothiazide 12.5 mg and f/u with PCP in 1 month - If SBP > 165/ DBP> 115 mmHg, consult with covering provider - If SBP <90/DBP <50 mmHg, consult with covering provider. Increasing Amlodipine to 10 mg. Follow up in one month (06/16/2024) with the nurse and BP readings. Assessment & Plan (04/13/2024 11:19 AM EST): BP is elevated. Discussed importance of monitoring BP at home. Follow up in 2 weeks with nurse to recheck BP and bring in readings. Begin Amlodipine 5 mg. Relevant Medications Amlodipine (Norvasc) 5 mg Tablet Assessment & Plan (12/17/2023 2:36 PM EDT): Reports not taking meds and side effects with hydrochlorothiazide, cont diet modification, declined nutrition referral. DASH diet recommended, f/up in 3 months Assessment & Plan (09/27/2023 12:13 PM EDT): Will start on hydrochlorothiazide 25mg, continue low sodium diet and exercise as tolerated Resolved Problems Problem Noted Date Diagnosed Date Resolved Date Ulceration of oral mucosa 01/21/2023 Assessment & Plan (01/21/2023 12:20 PM EDT): Patient presented with lump on upper lip was prescribe oral paste steriods. Immunizations Immunization Administration Dates Next Due Tdap 07/15/2017 Family History Medical History Relation Name Comments Heart disease Father Cancer Maternal Grandfather Breast cancer Maternal Grandmother Hypertension Maternal Grandmother Relation Name Status Comments Father Maternal Grandfather Maternal Grandmother Mother Social History Tobacco Use Types Packs/Day Years Used Date Smoking Tobacco: Never Passive Smoke Exposure: Never Smokeless Tobacco: Never Tobacco Cessation:Counseling Given: Not Answered Alcohol Use Standard Drinks/Week Comments Never 0 (1 standard drink = 0.6 oz pur e alcohol) Depression Answer Date Recorded Patient Health Questionnaire-9 Score 0 04/13/2024 Patient Health Questionnaire-9 Score 0 04/13/2024 Last PHQ-9: Questionnaire Data Not on file 1 06/13/2023 Housing Stability Answer Date Recorded What is your housing situation today? I have tyrell french 08/19/[address] you li ve. Do you have problems with any of the following? None of the above 08/19/2023 Food Insecurity Answer Date Recorded Within the past 12 months, y ou worried that your food would run out before you got money to buy more: Never True 08/19/2023 Within the past 12 months,th e food you bought just didn't last and you didn't have enough money to get more: Never True Transportation Answer Date Recorded In the past 12 months, has l ack of transportation kept you from medical appts, meetings, work or from getting things needed for daily living? No 08/19/2023 Utilities Answer Date Recorded In the past 12 months, has t he electric, gas, oil or water company threatened to shut off services in your home? No 08/19/2023 Depression Answer Date Recorded Patient Health Questionnaire-2 Score 0 04/13/2024 Comments Unknown Sex and Gender Information Value Date Recorded Sex Assigned at Female 03/23/2022 10:21 AM EDT Legal Sex Female 10:21 AM EDT Gender Identity Female 03/23/2022 10:21 AM EDT Sexual Orientation Straight 03/23/2022 10 :21 AM EDT Last Filed Vital Signs Vital Sign Reading Time Taken Comments Blood Pressure 116/82 06/16/2024 10:24 AM EST Pulse 112 06/16/2024 10:24 AM EST Temperature 36.7 ??C (98.1 ??F) 04/13/2024 10:[address] Respiratory Rate 16 06/16/2024 10:24 AM EST Oxygen Saturation 98% 04/13/2024 10:32 AM EST Inhaled Oxygen Concentration - - Weight 73.3 kg (161 lb 9.6 oz) 04/28/2024 1:48 P M EST Height 153 cm (5' 0.24 ) 04/13/2024 10:32 AM EST Body Mass Index 31.31 04/13/2024 10:32 AM EST Plan of Treatment Health Maintenance Due Date Last Done Comments CT Colonography 1975 Colonoscopy 1975 FIT 1975 FOBT 1975 Sigmoidoscopy 1975 Disability Screening 1975 Family Planning (PISQ) 10/11/1990 Hepatitis B Vaccines (1 of 3 - 19+ 3-dose series) 10/11/1994 Dental Oral Exam 05/01/2023 10/29/2022 Dental Prophylaxis 05/19/2023 11/16/2022 Dental X-Ray: Bitewings 10/31/2023 10/29/2022 Pap Smear 11/13/2023 11/12/2020 COVID-19 Vaccine ( season) 2024 01/12/2021, 12/08/2020 Influenza Vaccine (#1) 2024 SDOH Screening 08/18/2024 08/19/2023 Alcohol/Substance Use Screening 04/13/2025 04/13/2024 Depression Screening 04/13/2025 04/13/2024, 04/13/20 24 Tobacco Screening 05/12/2025 05/12/2024 Mammogram 08/30/2025 08/31/2023, 05/25, 06/06/2021, Additional history exists Zoster Vaccines (1 of 2) 10/11/2025 Dental X-Ray: Full Mouth 10/30/2025 10/29/2022 Cervical Cancer Screening 11/12/2025 HPV/Cotest 11/12/2025 11/12/2020, 12/29/2016 Colorectal Cancer Screening 01/17/2027 FIT DNA/Cologuard 01/17/2027 01/18/2024 DTaP/Tdap/Td Vaccines (2 - Td or Tdap) 07/15/2027 07/15/2017 Lipid Panel 12/21/2028 12/22/2023, 10/04/2020 RSV Patients and Patients Aged 60 years or older (1 - 1-dose 75+ series) 10/11/2050 HIV Screening Completed 06/09/2019 Hepatitis C Screening Completed 06/09/2019 HIB Vaccines Aged Out No longer eligi ble based on patient's age to complete this topic HPV Vaccines Aged Out No longer eligi ble based on patient's age to complete this topic Hepatitis A Vaccines Aged Out No long er eligible based on patient's age to complete this topic IPV Vaccines Aged Out No longer eligi ble based on patient's age to complete this topic Meningococcal B Vaccine Aged Out No l onger eligible based on patient's age to complete this topic Meningococcal Vaccine Aged Out No yaquelin melissa eligible based on patient's age to complete this topic Pneumococcal Vaccine: Pediatrics (0 to 5 Years) and At-Risk Patients (6 to 49) Years) Aged Out No longer eligible based on patient's age to complete this topic RSV under 20 months Aged Out No longe r eligible based on patient's age to complete this topic Rotavirus Vaccines Aged Out No longer eligible based on patient's age to complete this topic Procedures Procedure Name Priority Date/Time Associated Diagnosis Comments LAB COLOGUARD?? COLON CANCER SCREEN Routine 01/18/2024 10:30 AM EDT Colon cancer screening LIPID PANEL, STANDARD Routine 12/22/2023 10:17 AM EDT Primary hypertension BI MAMMOGRAM SCREENING TOMOSYNTHESIS BILATERAL Routine 08/31/2023 11:00 AM EDT PROPHYLAXIS - ADULT Routine 11/16/2022 1 0:00 AM EDT INTRAORAL - COMPLETE SERIES OF RADIOGRAPHIC IMAGES Routine 10/29/2022 9:00 AM EDT COMPREHENSIVE ORAL EVALUATION - NEW OR ESTABLISHED PATIENT Routine 10/29/2022 9:00 AM EDT HPV MRNA E6/E7 Routine 11/12/2020 10:41 AM EDT THINPREP PAP Routine 11/12/2020 10:41 AM EDT ZZZ HISTORICAL HEPATITIS C ANTIBODY RFLX Routine 06/09/2019 8:27 AM EST ZZZ HISTORICAL HIV AB/AG Routine 06/09/2019 8:27 AM EST from Last 3 Months or Most Recently Relevant to Health Maintenance Results * Cologuard?? colon cancer screening (01/18/2024 10:30 AM EDT) Cologuard Result Negative Negative 01/24/20 8:29 AM EDT [employer] [facility] (CLIA #:[id number]) Comment: NEGATIVE TEST RESULT. A negative Cologuard result indicates a low likelihood that a colorectal cancer (CRC) or advanced adenoma (adenomatous polyps with more advanced pre-malignant features) ??is present. The chance that a person with a negative Cologuard test has a colorectal cancer is less than 1 in 1500 (negative predictive value >99.9%) or has an ??advanced adenoma is less than ??5.3% (negative predictive value 94.7%). These data are based on a prospective cross-sectional study of 10,000 individuals at average risk for colorectal cancer who were screened with both Cologuard and colonoscopy. (Waldo Murphy al, N Engl J Med 2014;370(14):1286- 1297) The normal value (reference range) for this assay is negative. COLOGUARD RE-SCREENING RECOMMENDATION: Periodic colorectal cancer screening is an important part of preventive healthcare for asymptomatic individuals at average risk for colorectal cancer. ??Following a negative Cologuard result, the Indian Cancer Society and U.S. Multi-Society Task Force screening guidelines recommend a Cologuard re-screening interval of 3 years. References: Indian Cancer Society Guideline for Colorectal Cancer Screening: https://www.cancer.org/cancer/llpjs-kgsglj-btspzx/yrleiaozv-lmwsrcizq-eembocy/ac s-rec ommendations.html.; Yo DK, Matti CR, Senia HoganK, Colorectal Cancer Screening: Recommendations for Physicians and Patients from the U.S. Multi-Society Task Force on Colorectal Cancer Screening , Am J Gastroenterology 2017; 112:7719-5737. TEST DESCRIPTION: Composite algorithmic analysis of stool DNA-biomarkers with hemoglobin immunoassay. ?? Quantitative values of individual biomarkers are not reportable and are not associated with individual biomarker result reference ranges. Cologuard is intended for colorectal cancer screening of adults of either sex, 45 years or older, who are at average-risk for colorectal cancer (CRC). Cologuard has been approved for use by the U.S. FDA. The performance of Cologuard was established in a cross sectional study of average-risk adults aged 50-84. Cologuard performance in patients ages 45 to 49 years was estimated by sub-group analysis of near-age groups. Colonoscopies performed for a positive result may find as the most clinically significant lesion: colorectal cancer [4.0%], advanced adenoma (including sessile serrated polyps greater than or equal to 1cm diameter) [20%] or non- advanced adenoma [31%]; or no colorectal neoplasia [45%]. These estimates are derived from a prospective cross-sectional screening study of 10,000 individuals at average risk for colorectal cancer who were screened with both Cologuard and colonoscopy. (Waldo Murphy al, N Engl J Med 2014;370(14):8269-1503.) Cologuard may produce a false negative or false positive result (no colorectal cancer or precancerous polyp present at colonoscopy follow up). A negative Cologuard test result does not guarantee the absence of CRC or advanced adenoma (pre-cancer). The current Cologuard screening interval is every 3 years. (Indian Cancer Society and U.S. Multi-Society Task Force). Cologuard performance data in a 10,000 patient pivotal study using colonoscopy as the reference method can be accessed at the following location: www.Telestream/results. Additional description of the Cologuard test process, warnings and precautions can be found at www.reportbrainrd.com. Stool specimen (specimen) 01/18/2024 10:30 AM EDT 01/19/2024 4:04 PM EDT us Megan Gallardo MD LAB MOLECULAR DIAGNOSTICS ORD ERABLES Final Result [employer] (CLIA #:[id number]) [place] [address], * (ABNORMAL) Lipid Panel, Standard (12/22/2023 10:17 AM EDT) Triglycerides 75 <150 mg/dL [facility] Comment:Desirable Triglyceri de: less than 150 mg/dLBorderline High Triglyceride 150-199 mg/dLHigh Triglyceride: 200-499 mg/dLVery High Triglyceride: greater than or equal to 5OO mg/dL Cholesterol 193 <200 mg/dL [facility] Comment:Desirable Cholestero l: less than 200 mg/dLBorderline High Cholesterol: 200-239 mg/dLHigh Cholesterol: greater than 239 mg/dL LDL Cholesterol Calculated 126(H) <100 mg/dL [facility] Comment:Desirable LDL: less than 100 mg/dLNear Optimal/Above Optimal LDL: 110- 129 mg/dLBorderline High LDL: 130-159 mg/dLHigh LDL: 160-189 mg/dLVery High LDL: greater than or equal to 190 mg/dL HDL Cholesterol 52 >40 mg/dL [facility] Comment:Desirable HDL: great er than 40 mg/dL Note: This HDL assay may give artificially low results in patients with liver disease. Blood Venous blood specimen / Unknown 12/22/2023 10:17 AM EDT 12/22/2023 2:24 PM EDT us Megan Gallardo MD LAB BLOOD ORDERABLES Final Re sult [facility] [address] [place] [address] [phone] * BI Mammogram Screening Tomosynthesis Bilateral (08/31/2023 11:00 AM EDT) Anatomical Region Laterality Modality Breast Bilateral Mammography 08/31/2023 11:0 0 AM EDT Narrative 09/06/2023 5:40 AM EDT ? [facility] [place] ? [address] ?[place] [address] ? Mammography Report ? Signed ? Patient: Barber,Suzanne ?MR#: [id number] ?? 0 ? : 1975 ?Acct:[id number] ? Age/Sex: 47 / F ?ADM Date: // ? Loc: HO.MAMMO ? Attending : Terrance Valenzuela MD ? Ordering Physician: Terrance Bates MD ?Res ?? ults: 2Benign Findings ? Date of Service: 08/31/23 ?Follow Up: 1 Year From Orig ?? inal Mammogram ? Procedure(s): MM tomosynthesis screening BI ?? Accession Number(s): [id number] ? cc: Terrance Bates MD ? EXAMINATION: ?? MM SCREENING DIGITAL BREAST TOMOSYNTHESIS, BILATERAL ? CLINICAL INFORMATION: ? Screening. Asymptomatic. ? COMPARISON: ?? Mammography: This study is compared with prior exams dating back to ?? 2018. ? TECHNIQUE: ?? Digital breast tomosynthesis is performed in both the craniocaudal and ?? mediolateral oblique views along with computer-aided detection (CAD). ?? Synthesized 2D images are generated from the tomosynthesis. ? FINDINGS: ?? There are scattered areas of fibroglandular density (ACR BI-RADS breast ?? composition Category b). ? There are no significant masses, abnormal calcifications, or other ?? abnormalities. ? There is a biopsy tissue marker associated with a small, ?? mammographically benign mass in the upper outer quadrant of the left ?? breast. ? MM/MM tomosynthesis screening BI ?? IMPRESSION: ?? No mammographic evidence of malignancy. ? ASSESSMENT: ? BI-RADS BI-RADS 2 - Benign Findings ? RECOMMENDATION: ?? Routine annual mammography screening. ? 1 year F/U ? This examination should not preclude the clinical evaluation of a ?? suspicious palpable abnormality. ? This patient's information was entered into a reminder system with a ?? target due date for their next mammogram. ? Dictated By: ?Sosa Coleman MD ? Signed By: ?<Electronically signed by Sosa Coleman MD in OV> ? 09/06/23 0537 ? DD/ 1100 ? TD/TT: ? Photographic Process Worker: ? Procedure Note Donotuseinterpreter, Image - 09/06/2023 [facility] [address] [place] [address] Mammography Report Signed Patient: Tee Barber#: [id number] 0 : 1975Acct:[id number] Age/Sex: 47 / FADM Date: 08/31/23 Loc: HO.MAMMO Attending Dr: Terrance Valenzuela MD Ordering Physician: Terrance Bates ults: 2Benign Findings Date of Service: 08/31/23Follow Up: 1 Year From Orig inal Mammogram Procedure(s): MM tomosynthesis screening BI Accession Number(s): [id number] cc: Terrance Bates MD EXAMINATION: MM SCREENING DIGITAL BREAST TOMOSYNTHESIS, BILATERAL CLINICAL INFORMATION: Screening. Asymptomatic. COMPARISON: Mammography: This study is compared with prior exams dating back to 2018. TECHNIQUE: Digital breast tomosynthesis is performed in both the craniocaudal and mediolateral oblique views along with computer-aided detection (CAD). Synthesized 2D images are generated from the tomosynthesis. FINDINGS: There are scattered areas of fibroglandular density (ACR BI-RADS breast composition Category b). There are no significant masses, abnormal calcifications, or other abnormalities. There is a biopsy tissue marker associated with a small, mammographically benign mass in the upper outer quadrant of the left breast. MM/MM tomosynthesis screening BI IMPRESSION: No mammographic evidence of malignancy. ASSESSMENT: BI-RADS BI-RADS 2 - Benign Findings RECOMMENDATION: Routine annual mammography screening. 1 year F/U This examination should not preclude the clinical evaluation of a suspicious palpable abnormality. This patient's information was entered into a reminder system with a target due date for their next mammogram. Dictated By: Sosa Coleman MD Signed By: <Electronically signed by Sosa Coleman MD in OV> 09/06/23 0537 DD/ 1100 TD/TT: Photographic Process Worker: us Terrance Valenzuela MD IMG BI PROCEDURES Final Result * THINPREP PAP (11/12/2020 10:41 AM EDT) Clinical Information: None given [facility] COMMENT SEE COMMENT [facility] Comment: EXPLANATORY NOTE: ? The Pap is a screening test for cervical cancer. It is ?? not a diagnostic test and is subject to false negative ?? and false positive results. It is most reliable when a ?? satisfactory sample, regularly obtained, is submitted ?? with relevant clinical findings and history, and when ?? the Pap result is evaluated along with historic and ?? current clinical information. ?? Sports [facility] : SEE COMMENT [facility] Comment: EdisonXM, CT(ASCP) CT screening location: [address] ??[address] Interpretation/R esult: Negative for intraepithelial lesion or malignancy. [facility] LMP: NONE GIVEN [facility] Prev. BX: NONE GIVEN [facility] Prev. PAP: NONE GIVEN [facility] SOURCE: None given [facility] Statement Of Adequacy: SEE COMMENT [facility] Comment: Satisfactory for evaluation. Endocervical/transformation zone component absent. Age and/or menstrual status not provided 11/12/2020 10:4 1 AM EDT Natividad [facility]CH[facility] LAB PATHOLOGY ORDERABLES Final Result Performing Organization Address City/State/[facility] Co de Phone Number [facility] [address] * HPV mRNA E6/E7 (11/12/2020 10:41 AM EDT) HPV nRNA E6/E7 Not Detected Not Detected [facility] Comment: Methodology: Branch Customer Service Representative-Mediated Amplification This assay detects E6/E7 viral messenger RNA (mRNA) from 14 high-risk HPV types (16,18,31,33,35,39,45,51,52,56,58,59,66,68). ? The analytical performance characteristics of this assay have been determined by [employer]. The modifications have not been cleared or approved by the FDA. This assay has been validated pursuant to the CLIA regulations and is used for clinical purposes. ?? For additional information, please refer to http://education.Naow/faq/EQR581k6 (This link if provided for information/ educational purposes only.) 11/12/2020 10:4 1 AM EDT Natividad Duffy [facility] LAB BLOOD ORDERABLES Criss l Result Performing Organization Address [facility] Phone Number [facility] [place] [address], * HEPATITIS C ANTIBODY RFLX (06/09/2019 8:27 AM EST) Pathologist [facility] HEPATITIS C ANTIBODY NONREACTIVE NONREACTIVE [facility] Comment: Antibodies to HCV not detected; does not exclude early acute HCV infection. 06/09/2019 8:27 AM EST Historical Provider HISTORICAL/NON ORDERABLE LABS Final Result Performing Organization [facility] [place] [address], * HIV AB/AG (06/09/2019 8:27 AM EST) Pathologist [facility] HIV AG/AB NONREACTIVE NR [facility] Comment: HIV-1 p24 Ag and/or HIV-1/HIV-2 Ab not detected. ?? A test result that is nonreactive does not exclude the possibility of exposure to or infection with HIV-1 and/or HIV-2. Nonreactive results in this assay for individuals with prior exposure to HIV-1 and/or HIV-2 may be due to antigen and antibody levels that are below the limit of detection of this assay. ?? The [employer] Wardrobe Coordinator HIV Ag/Ab Combo assay result and supplemental assay results should be interpreted in conjunction with the patient's clinical presentation, history and other laboratory results. ??If the results are inconsistent with clinical evidence, additional testing is suggested to confirm the result. 06/09/2019 8:27 AM EST Historical Provider HISTORICAL/NON ORDERABLE LABS Final Result [facility] [address] from Last 3 Months or Most Recently Relevant to Health Maintenance Insurance [facility] D[facility] - HSN PARTIAL (MEDICAID) Care Teams Supplies Packer Relationship Specialty Start Date End Date Megan Gallardo MD [address] [place] [address] PCP - General Family Medicine 12/17/23
== END 2024-10-12 13:02 | disposition home or self-care (01) ==
LOC: HO.MAMMO 13:01
PROVIDERS: PCP Family Medicine; Visit Provider Family Medicine
DX: Z12.31 Encounter for screening mammogram for malignant neoplasm of breast (principal)
CPT/HCPCS: 77063; 77067

== ENCOUNTER → 2024-10-12 13:30 | Outpatient (BNV) | payer OTHER, SELFPAY | PROVIDERS: PCP Family Medicine; Visit Provider Internal Medicine | DX: Z12.31 Encounter for screening mammogram for malignant neoplasm of breast (principal) | CPT/HCPCS: 77063; 77067 ==

== ENCOUNTER 2025-04-16 18:18 | Outpatient (REF) | payer OTHER, SELFPAY ==
--- OUTSIDE RECORDS SUMMARY | 2025-04-16 15:30 | XMS_ITS | Encounter Summary ---
Author Organization [facility] Address [address] [place] [address] 7 [place] [address] Care Team Providers Care Valve Inspector Name Role Phone Megan Gallardo MD Primary Care Provider [phone] Reason for Referral * Consultation (Routine) - Pending Review Specialty Diagnoses / Procedures Referred By Neil meehan Referred To Contact Physical Therapy Diagnoses Piriformis syndrome of left side Iliotibial band syndrome of left side Megan Gallardo MD [address] [place] [address] Phone: tel: fax: Referral ID Status Reason Start Date Expiration Date Visits Requested Visits Authorized [id number] Pending Review Specialty Services Required 04/16/2026 1 1 Reason for Visit * Reason Comments Hypertension Encounter Details Date Type Department Care Team ([facility] st Contact Info) Description 04/16/2025 3:30 PM EST Office Visit [facility] MED & PEDS [address] [place] [address] Megan Glalardo MD [address] [place] [address] Abnormal uterine bleeding (Primary Dx); Dietary counseling; [...] 9:00 AM EST Office Visit [facility] MED & PEDS [address] [place] [address] Megan Gallardo MD [address] [place] [address] 06/20/2025 10:45 AM EST Office Visit [facility] MED & PEDS [address] [place] [address] Megan Gallardo MD [address] [place] [address] Scheduled Orders Name Type Priority Associated Diagnoses [...] Media Lot # [id number] Lot# Expiration Date [id number] Urine 04/16/2025 4:27 PM EST us Megan [...] documented as of this encounter Care Teams Valve Inspector Relationship Specialty Start Date End Date Megan Gallardo MD [address] [place] [address] PCP - General Family Medicine 12/17/23 documented as of this encounter
--- OUTSIDE RECORDS SUMMARY | 2025-04-16 20:35 | XMS_ITS | Encounter Summary ---
Author Organization [employer] Address [address] [place] [address] Care Team Providers Care Rolling Down Machine Operator Name Role Phone Megan Gallardo MD Primary Care Provider [phone] Encounter Details Date Type Department Care Team (Latest Contact Info) Description 04/16/2025 Travel Social History Tobacco Use Types Packs/Day Years [...] as of this encounter Plan of Treatment Upcoming Encounters Date Type Department Care Team (Late st Contact Info) Description 06/01/2025 9:00 AM EST Office Visit [facility] MED & PEDS [address] [place] [address] Megan Gallardo MD [address] [place] [address] 06/20/2025 10:45 AM EST Office Visit [facility] MED & PEDS [address] [place] [address] Megan Gallardo MD [address] [place] [address] documented as of this encounter Visit Diagnoses Not on filedocumented in this encounter Additional Health Concerns Assessment Noted Time PHQ-9 Depression Total Score: 0 04/13/20 24 10:33 AM EST documented as of this encounter Care Teams Rolling Down Machine Operator Relationship Specialty Start Date End Date Megan Gallardo MD [address] [place] [address] PCP - General Family Medicine 12/17/23 documented as of this encounter
--- OUTSIDE RECORDS SUMMARY | 2025-04-16 20:35 | XMS_ITS | Encounter Summary ---
Author Organization [employer] Address [address] [place] [address] Care Team Providers Care Ethylene Plant Operator Name Role Phone Megan Gallardo MD Primary Care Provider [phone] Encounter Details Date Type Department Care Team (Late st Contact Info) Description 04/11/2025 Telephone [facility] [address] [place], [place] [phone] Sana Parikh, RN [address] [place] [address] Social History Tobacco Use Types Packs/Day Years [...] AM EDT documented as of this encounter Miscellaneous Notes * Telephone Encounter - Sana Parikh RN - 04/11/2025 8:57 AM EST pt presents to the center today, with a request to change her BP medication. pt states has been on this medication for a while now and is having some side effects. pt reports leg swelling and pain, intermittent nausea, and headaches. pt currently on Amlodipine 10 mg daily and her BP readings are under control: 112/76 today. pt states does not like the side effects and wants to change. pt awake, alert, and in no acute distress. no obvious swelling at this time. advised home care: rest, adequate fluids, elevate legs when sitting, avoid use of salt or salty foods, and call back as needed. given appt Wednesday with PCP at 3:30 for exam and to discuss medication change. pt understands and agrees with plan. used Sinhala coding validator from [employer] #[id number]. given appt reminder at end of visit. Protocol Used: Medication Question Call (Adult) Protocol-Based Disposition: See in Office or Video Visit within 3 Days Positive Triage Question: * Prescription request for new medicine (not a refill) * All higher-acuity triage questions were negative. Care Advice Discussed: * Reasons To Call Back - You have any more questions - You become worse documented in this encounter Plan of Treatment Upcoming Encounters Date Type Department Care Team (Late st Contact Info) Description 06/01/2025 9:00 AM EST Office Visit [facility] MED & PEDS [address] [place], [place] [phone] Megan Gallardo MD [address] [place] [address] 06/20/2025 10:45 AM EST Office Visit [facility] MED [facility] PEDS [address] [place] [address] Megan Gallardo MD [address] [place] [address] documented as of this encounter Visit Diagnoses Not on filedocumented in this encounter Additional Health Concerns Assessment Noted Time PHQ-9 Depression Total Score: 0 04/13/20 10:33 AM EST documented as of this encounter Care Teams Ethylene Plant Operator Relationship Specialty Start Date End Date Megan Gallardo MD [address] [place] [id number] PCP - General Family Medicine 12/17/23 documented as of this encounter
--- OUTSIDE RECORDS SUMMARY | 2025-04-16 20:35 | XMS_ITS | Encounter Summary ---
Author Organization [employer] Address [address] [address] [place] [address] Care Team Providers Care Track Service Person Name Role Phone Megan Gallardo MD Primary Care Provider [phone] Reason for Visit * Reason Onset Date Comments Appointment 04/16/2025 Encounter Details Date Type Department Care Team ([facility] Contact Info) Description 04/16/2025 Telephone [facility] MED & PEDS [address] [place] [address] Megan Gallardo MD [address] [place] [address] Appointment Social History Tobacco Use Types Packs/Day Years [...] encounter Miscellaneous Notes * Telephone Encounter - Ulisesmike Jose - 04/16/2025 3:54 PM EST Outgoing call lvm chart writer attempted to mane active request appointment: Follow up in about 4 weeks (around 05/14/2025). If pt returns call please scheule on next avail. documented in this encounter Plan of Treatment Upcoming Encounters Date Type Department Care Team (Late st Contact Info) Description 06/01/2025 9:00 AM EST Office Visit [facility] MED & PEDS [address] [place] [address] Mgean Gallardo MD [address] [place] [address] 06/20/2025 10:45 AM EST Office Visit [facility] MED & PEDS [address] [place] [address] Megan Gallardo MD [address] [place] [address] documented as of this encounter Visit Diagnoses Not on filedocumented in this encounter Additional Health Concerns Assessment Noted Time PHQ-9 Depression Total Score: 0 04/13/20 10:33 AM EST documented as of this encounter Care Teams Track Service Person Relationship Specialty Start Date End Date Megan Gallardo MD [address] [place] [address] PCP - General Family Medicine 12/17/23 documented as of this encounter
--- OUTSIDE RECORDS SUMMARY | 2025-04-16 20:35 | XMS_ITS | Encounter Summary ---
Author Organization [facility] [facility] Address [address] [place] [address] 7 [place] [address] Care Team Providers Care Trade Sales Assistant Name Role Phone Terrance Bates MD Primary Care Prov ider Megan Gallardo MD Primary Care Provider [phone] Encounter Details Date Type Department Care Team (Late Contact Info) Description 07/31/2022 Orders Only [facility] MED & PEDS [address] [place] [address] Cathi Barnett LPN Social History Tobacco Use [...] Encounters Date Type Department Care Team (Late Contact Info) Description 06/01/2025 9:00 AM EST Office Visit [facility] MED & PEDS [address] [place] [address] Megan Gallardo MD [address] [place] [address] 06/20/2025 10:45 AM EST Office Visit [facility] MED & PEDS [address] [place] [address] Megan Gallardo MD [address] [place] [address] documented as of this encounter Visit Diagnoses Not on filedocumented in this encounter Care Teams Trade Sales Assistant Relationship Specialty Start Date End Date Terranec Bates MD [address] [place] [address] PCP - General Internal Medicine 10/17/19 12/16/23 Megan Gallardo MD [address] [place] [address] PCP - General Family Medicine 12/17/23 documented as of this encounter
--- OUTSIDE RECORDS SUMMARY | 2025-04-16 20:35 | XMS_ITS | Clinical Summary ---
Author Organization [employer] Address [address] [facility] [facility] [address] 7[address] [place] [address] Care Team Providers Care Supervisor Volunteer Services Name Role Phone Megan Gallardo MD Primary Care Provider [phone] Allergies Active Allergy Reactions Criticality Noted Date Comments Lisinopril 04/13/2024 Medications losartan (Cozaar) 50 MG tablet Take 1 tablet (50 mg) by mouth Once per day. 90 tablet 1 04/16/2025 4:07 PM EST 5 Active amLODIPine (Norvasc) 10 MG tablet TAKE 1 TABLET DAILY 90 tablet 1 5 04/16/20 25 Discontinu ed(Side effects) Active Problems Problem Noted Date Diagnosed Date Dietary counseling 12/17/2023 Overweight 12/17/2023 Assessment & Plan (12/17/2023 1:48 PM EDT): Discussed calorie deficit, recommended reduction of 20-30% of maintenance calories; rabbler referral offered. Recommended to decrease soda and [...] upper lip was prescribe oral paste steriods. Encounters Date Type Department Care Team Description 04/16/2025 3:30 PM EST Office Visit [facility] [address] [place] [address] Megan Gallardo MD Abnormal uterine bleeding (Primary Dx); Dietary counseling; Exercise counseling; Overweight; Primary hypertension; Piriformis syndrome of left side; Iliotibial band syndrome of left side 04/16/2025 Telephone [facility] [address] [place] [address] Megan Gallardo MD Appointment 04/16/2025 Travel 04/11/2025 Telephone [facility] [address] [place] [address] Sana Parikh RN 04/02/2025 Telephone [facility] [address] [place] [address] Megan Gallardo MD cx appointment 03/23/2025 Patient Outreach [facility] [address] [place], [place] [phone] Megan Gallardo MD Pre-visit Planning (Pre visit planning LVM ) from Last 3 Months Immunizations Immunization Administration Dates Next Due Tdap [...] Mass Index 29.88 04/16/2025 3:03 PM EST Plan of Treatment Upcoming Encounters Date Type Department Care Team (Late st Contact Info) Description 06/01/2025 9:00 AM EST Office Visit [facility] [address] [place] [address] Megan Gallardo MD [address] [place] [address] 06/20/2025 10:45 AM EST Office Visit [facility] [address] [place] [address] Megan Gallardo MD [address] [place] [address] Health Maintenance Due Date Last Done Comments CT Colonography 1975 Colonoscopy 1975 FIT 1975 Sigmoidoscopy 1975 Disability Screening 1975 Alcohol/Substance Use Screening 1987 Family Planning (PISQ) 10/11/1990 Hepatitis B Vaccines (1 of 3 - 19+ 3-dose series) 10/11/1994 Dental Oral Exam 05/01/2023 10/29/2022 Dental Prophylaxis 05/19/2023 11/16/2022 Dental X-Ray: Bitewings 10/31/2023 10/29/2022 SDOH Screening 08/18/2024 08/19/2023 FOBT 01/17/2025 01/18/2024 COVID-19 Vaccine ( - season) 2025 01/12/2021, 12/08/2020 Influenza Vaccine (#1) 2025 Depression Screening 04/13/2025 04/13/2024, 04/13/20 24 Zoster Vaccines (1 of 2) 10/11/2025 Mammogram 2025 2024, 04/0 01/2024, 06/15/2022, Additional history exists Dental X-Ray: Full Mouth 10/30/2025 10/29/2022 Cervical Cancer Screening 11/12/2025 HPV/Cotest 11/12/2025 11/12/2020, 12/29/2016 Pap Smear 11/12/2025 11/12/2020 Tobacco Screening 04/16/2026 04/16/2025 Colorectal Cancer Screening 01/17/2027 FIT DNA/Cologuard 01/17/2027 [...] Years) and At-Risk Patients (6 to 49) Years Aged Out No longer eligible based on [...] 04/16/2025 4:27 PM EST Abnormal uterine bleeding ALBUMIN, RANDOM URINE W/CREATININE Routine 04/16/2025 3:37 PM EST BI MAMMOGRAM SCREENING TOMOSYNTHESIS BILATERAL Routine 2024 1:15 PM EDT LAB COLOGUARD COLON CANCER SCREEN Routine 01/18/2024 10:30 AM EDT Colon cancer screening LIPID PANEL, STANDARD Routine 12/22/2023 10:17 AM EDT Primary hypertension PROPHYLAXIS - ADULT Routine 11/16/2022 1 0:00 AM EDT INTRAORAL - COMPLETE SERIES OF RADIOGRAPHIC IMAGES Routine 10/29/2022 9:00 AM EDT COMPREHENSIVE ORAL EVALUATION - NEW OR ESTABLISHED PATIENT Routine 10/29/2022 9:00 AM EDT HPV MRNA E6/E7 Routine 11/12/2020 10:41 AM EDT THINPREP PAP Routine 11/12/2020 10:41 AM EDT ZZZ HISTORICAL HEPATITIS C ANTIBODY RFLX Routine 06/09/2019 8:27 AM EST ZZ HISTORICAL HIV AB/AG Routine 06/09/2019 8:27 AM EST from Last 3 Months or Most Recently Relevant to Health Maintenance Results * POCT Urine (04/16/2025 4:27 PM EST) Preg Test, Ur Negative Negative, Indeterminate, None Detected, Trace, 3+, Specimen unsatisfactory for evaluation, Weakly Positive, 1+, 2+ QC Media Lot # [id number] Lot# Expiration Date [id number] Urine 04/16/2025 4:27 PM EST us Megan Gallardo MD POINT OF CARE TEST ENTER/EDIT ORDERABLES Final Result * Albumin, Random Urine W/Creatinine (04/16/2025 3:37 PM EST) Creatinine, Urine 31.91 mg/dL [facility] Microalbumin Urine <5.0 mg/L [facility] Microalbum Creatinine Ratio Ur TNP <30 ug/mg cr [facility] Comment:Unable to calculate albumin/creatinine ratio due to lowmicroalbumin or creatinine result. 04/16/2025 3:37 PM EST 04/16/2025 6:19 PM EST us Megan Gallardo MD LAB URINE ORDERABLES Final Re sult Performing Organization Address City/State/[facility] Co de Phone Number [facility] [address] [place] [phone] * BI Mammogram Screening Tomosynthesis Bilateral (2024 1:15 PM EDT) Anatomical Region Laterality Modality Breast Bilateral Mammography 2024 1:15 PM EDT Narrative 10/21/2024 11:54 AM EDT [address] [place] [address] Mammography Report Signed Patient: Renuka Barber MR#: [id number] 0 : 1975 Acct:[id number] Age/Sex: 49 / F ADM Date: 10/12/24 Loc: HO.MAMMO Attending Dr: Megan Gallardo MD Ordering Physician: Megan Gallardo MD Results: 2Beni gn Findings Date of Service: 10/12/24 Follow Up: 1 Year From Orig inal Mammogram Procedure(s): MM tomosynthesis screening BI Accession Number(s): [id number] cc: Megan Gallardo MD EXAMINATION: MM SCREENING DIGITAL BREAST TOMOSYNTHESIS, BILATERAL CLINICAL INFORMATION: Screening. Asymptomatic. COMPARISON: Mammography: Comparison is made with available priors TECHNIQUE: Digital breast mammography with tomosynthesis is performed in both the craniocaudal and mediolateral oblique views along with computer-aided detection (CAD). FINDINGS: There are scattered areas of fibroglandular density (ACR BI-RADS breast composition Category b). Left marker clip. There are no significant masses, abnormal calcifications, or other abnormalities. MM/MM tomosynthesis screening BI IMPRESSION: No mammographic evidence of malignancy. ASSESSMENT: BI-RADS BI-RADS 2 - Benign Findings RECOMMENDATION: Routine annual mammography screening. 1 year F/U This examination should not preclude the clinical evaluation of a suspicious palpable abnormality. This patient's information was entered into a reminder system with a target due date for their next mammogram. Electronically signed by: Gladis Abdalla DO 10/21/2024 11:51 AM EDT RP Dictated By: Gladis Abdalla DO Signed By: <Electronically signed by Gladis Abdalla DO in OV> 10/21/24 1151 DD/ 1315 TD/TT: 10/12/24 1332 Director Of Accounts Payable: Procedure Note Donotuseinterpreter, Image - 10/21/2024 [facility] [address] [place] [address] Mammography Report Signed Patient: Tee Barber#: [id number] 0 : 1975Acct:[id number] Age/Sex: 49 / FADM Date: 10/12/24 Loc: HO.MAMMO Attending Dr: Megan Gallardo MD Ordering Physician: Megan Gallardo MDResults: 2Beni gn Findings Date of Service: 10/12/24Follow Up: 1 Year From Orig inal Mammogram Procedure(s): MM tomosynthesis screening BI Accession Number(s): [id number] cc: Megan Gallardo MD EXAMINATION: MM SCREENING DIGITAL BREAST TOMOSYNTHESIS, BILATERAL CLINICAL INFORMATION: Screening. Asymptomatic. COMPARISON: Mammography: Comparison is made with available priors TECHNIQUE: Digital breast mammography with tomosynthesis is performed in both the craniocaudal and mediolateral oblique views along with computer-aided detection (CAD). FINDINGS: There are scattered areas of fibroglandular density (ACR BI-RADS breast composition Category b). Left marker clip. There are no significant masses, abnormal calcifications, or other abnormalities. MM/MM tomosynthesis screening BI IMPRESSION: No mammographic evidence of malignancy. ASSESSMENT: BI-RADS BI-RADS 2 - Benign Findings RECOMMENDATION: Routine annual mammography screening. 1 year F/U This examination should not preclude the clinical evaluation of a suspicious palpable abnormality. This patient's information was entered into a reminder system with a target due date for their next mammogram. Electronically signed by: Gladis Abdalla DO 10/21/2024 11:51 AM EDT Dictated By: Gladis Abdalla DO Signed By: <Electronically signed by Gladis Abdalla DO in OV> 10/21/24 1151 DD/ 1315 TD/TT: 10/12/24 1332 Director Of Accounts Payable: us Megan Gallardo MD IMG BI PROCEDURES Final Resul t * Cologuard?? colon cancer screening (01/18/2024 10:30 AM EDT) Cologuard Result Negative Negative 01/24/20 8:29 AM EDT [facility] (CLIA #:[id number]) Comment: NEGATIVE TEST RESULT. A negative Cologuard result indicates a low likelihood that a colorectal cancer (CRC) or advanced adenoma (adenomatous polyps with more advanced pre-malignant features) is present. The chance that a person with a negative Cologuard test has a colorectal cancer is less than 1 in 1500 (negative predictive value >99.9%) or has an advanced adenoma is less than 5.3% (negative predictive value 94.7%). These data are based on a prospective cross-sectional study of 10,000 individuals at average risk for colorectal cancer who were screened with both Cologuard and colonoscopy. (Waldo Murphy al, N Engl J Med 2014;370(14):4510-2498) The normal value (reference range) for this assay is negative. COLOGUARD RE-SCREENING RECOMMENDATION: Periodic colorectal cancer screening is an important part of preventive healthcare for asymptomatic individuals at average risk for colorectal cancer. Following a negative Cologuard result, the [place] [employer] and U.S. Multi-Society Task Force screening guidelines recommend a Cologuard re-screening interval of 3 years. References: [place] [employer] Guideline for Colorectal Cancer Screening: https://www.cancer.org/cancer/kcvtf-eychav-gdasji/xmiyotota-jloywprhy-omvemcy/ac s-rec ommendations.html.; Yo DK, Matti CR, Senia HoganK, Colorectal Cancer Screening: Recommendations for Physicians and Patients from the U.S. Multi-Society Task Force on Colorectal Cancer Screening , Am J Gastroenterology 2017; 112:2668-6421. TEST DESCRIPTION: Composite algorithmic analysis of stool DNA-biomarkers with hemoglobin immunoassay. Quantitative values of individual biomarkers are not [...] (Waldo Murphy al, N Engl J Med 2014;370(14):7358-0461.) Cologuard may produce a false negative or false positive result (no colorectal cancer or precancerous polyp present at colonoscopy follow up). A negative Cologuard test result does not guarantee the absence of CRC or advanced adenoma (pre-cancer). The current Cologuard screening interval is every 3 years. ([place] [employer] and U.S. Multi-Society Task Force). Cologuard performance data in a 10,000 patient pivotal study using colonoscopy as the reference method can be accessed at the following location: www.[employer]ell[employer]/results. Additional description of the Cologuard test process, warnings and precautions can be found at www.colCyActiverd.com. Stool specimen (specimen) 01/18/2024 10:30 AM EDT 01/19/2024 4:04 PM EDT us Megan Gallardo MD LAB MOLECULAR DIAGNOSTICS ORD ERABLES Final Result [facility] (CLIA #:[id number]) [address] [place] [address], * (ABNORMAL) Lipid Panel, Standard (12/22/2023 10:17 AM EDT) Triglycerides 75 <150 mg/dL [facility] Comment:Desirable Triglyceri de: less than 150 mg/dLBorderline High Triglyceride 150-199 mg/dLHigh Triglyceride: 200-499 mg/dLVery High Triglyceride: greater than or equal to 5OO mg/dL Cholesterol 193 <200 mg/dL [facility] Comment:Desirable Cholestero l: less than 200 mg/dLBorderline High Cholesterol: 200-239 mg/dLHigh Cholesterol: greater than 239 mg/dL LDL Cholesterol Calculated 126(H) <100 mg/dL [facility] Comment:Desirable LDL: less than 100 mg/dLNear Optimal/Above Optimal LDL: 110- 129 mg/dLBorderline High LDL: 130-159 mg/dLHigh LDL: 160-189 mg/dLVery High LDL: greater than or equal to 190 mg/dL HDL Cholesterol 52 >40 mg/dL [facility] Comment:Desirable HDL: great er than 40 mg/dL Note: This HDL assay may give artificially low results in patients with liver disease. Blood Venous blood specimen / Unknown 12/22/2023 10:17 AM EDT 12/22/2023 2:24 PM EDT us Megan Gallardo MD LAB BLOOD ORDERABLES Final Re sult Performing Organization Address [facility] Co de Phone Number [facility] [address] [place] [address] [phone] * THINPREP PAP (11/12/2020 10:41 AM EDT) Clinical Information: None given [facility] COMMENT SEE COMMENT [facility] Comment: EXPLANATORY NOTE: The Pap is a screening test for cervical cancer. It is not a diagnostic test and is subject to false negative and false positive results. It is most reliable when a satisfactory sample, regularly obtained, is submitted with relevant clinical findings and history, and when the Pap result is evaluated along with historic and current clinical information. Crossbar Switch Adjuster : SEE COMMENT [facility] Comment: JXM, CT(ASCP) CT screening location: [place] [address] Interpretation/R esult: Negative for intraepithelial lesion or malignancy. [facility] LMP: NONE GIVEN [facility] Prev. BX: NONE GIVEN [facility] Prev. PAP: NONE GIVEN [facility] SOURCE: None given [facility] Statement Of Adequacy: SEE COMMENT [facility] Comment: Satisfactory for evaluation. Endocervical/transformation zone component absent. Age and/or menstrual status not provided 11/12/2020 10:4 1 AM EDT us Natividad Duffy CNM LAB PATHOLOGY ORDERABLES Final Result Performing Organization Address [facility]/ZIP Co de Phone Number [facility] [address] [place] [id number] * HPV mRNA E6/E7 (11/12/2020 10:41 AM EDT) HPV nRNA E6/E7 Not Detected Not Detected [facility] Comment: Methodology: Bottling Equipment Sales Representative-Mediated Amplification This assay detects E6/E7 viral messenger RNA (mRNA) from 14 high-risk HPV types (16,18,31,33,35,39,45,51,52,56,58,59,66,68). The analytical performance characteristics of this assay have been determined by [employer] The modifications have not been cleared or approved by the FDA. This assay has been validated pursuant to the CLIA regulations and is used for clinical purposes. For additional information, please refer to http://education.Bebo/faq/KEK779w9 (This link if provided for information/ educational purposes only.) 11/12/2020 10:4 1 AM EDT Natividad Duffy [facility] LAB BLOOD ORDERABLES Criss l Result Performing Organization Address [facility] Phone Number [facility] [address] * HEPATITIS C ANTIBODY RFLX (06/09/2019 8:27 AM EST) Pathologist [facility] HEPATITIS C ANTIBODY NONREACTIVE NONREACTIVE [facility] Comment: Antibodies to HCV not detected; does not exclude early acute HCV infection. 06/09/2019 8:27 AM EST Historical Provider MD HISTORICAL/NON ORDERABLE LABS Final Result Performing Organization Address [facility] Phone [facility] [address] * HIV AB/AG (06/09/2019 8:27 AM EST) Pathologist [facility] HIV AG/AB NONREACTIVE NR [facility] Comment: HIV-1 p24 Ag and/or HIV-1/HIV-2 Ab not detected. A test result that is nonreactive does not exclude the possibility of exposure to or infection with HIV-1 and/or HIV-2. Nonreactive results in this assay for individuals with prior exposure to HIV-1 and/or HIV-2 may be due to antigen and antibody levels that are below the limit of detection of this assay. The [employer] Master HIV Ag/Ab Combo assay result and supplemental assay results should be interpreted in conjunction with the patient's clinical presentation, history and other laboratory results. If the results are inconsistent with clinical evidence, additional testing is suggested to confirm the result. 06/09/2019 8:27 AM EST us Historical Provider HISTORICAL/NON ORDERABLE LABS Final Result [facility] [address] from Last 3 Months or Most Recently Relevant to Health Maintenance Insurance [facility] 3 DENTAL - HSN PARTIAL (MEDICAID) Care Teams Supervisor Volunteer Services Relationship Specialty Start Date End Date Megan Gallardo MD [address] [place] [phone] PCP - General Family Medicine 12/17/23
== END 2025-04-16 18:19 | disposition home or self-care (01) ==
LOC: HO.CHCLNP 18:18
PROVIDERS: Visit Provider Family Medicine
DX: I10 Essential (primary) hypertension (principal)
CPT/HCPCS: 82043; 82570

== ENCOUNTER 2025-04-17 08:56 | Outpatient (REF) | payer OTHER, SELFPAY ==
--- OUTSIDE RECORDS SUMMARY | 2025-04-16 15:30 | XMS_ITS | Encounter Summary ---
Author Organization [facility] Address [address] [place] [address] 7 [place] [address] Care Team Providers Care Continuous Improvement Director Name Role Phone Megan Gallardo MD Primary Care Provider [phone] Reason for Referral * Consultation (Routine) - Pending Review Specialty Diagnoses / Procedures Referred By Neil meehan Referred To Contact Physical Therapy Diagnoses Piriformis syndrome of left side Iliotibial band syndrome of left side Megan Gallardo MD [address] [place] [address] Phone: tel: fax: Referral ID Status Reason Start Date Expiration Date Visits Requested Visits Authorized [id number] Pending Review Specialty Services Required 04/16/2026 1 1 Reason for Visit * Reason Comments Hypertension Encounter Details Date Type Department Care Team ([facility] st Contact Info) Description 04/16/2025 3:30 PM EST Office Visit [facility] MED & PEDS [address] [place] [address] Megan Gallardo MD [address] [place] [address] Abnormal uterine bleeding (Primary Dx); Dietary counseling; Exercise counseling; Overweight; Primary hypertension; Piriformis syndrome of left side; Iliotibial band syndrome of left side Social History Tobacco Use Types Packs/Day Years Used Date Smoking Tobacco: Never Passive Smoke Exposure: Never Smokeless Tobacco: Never Alcohol Use Standard Drinks/Week Comments Never 0 [...] AM EDT documented as of this encounter Last Filed Vital Signs Vital Sign Reading Time Taken Comments Blood Pressure 136/84 04/16/2025 3:03 PM EST Pulse 80 04/16/2025 3:03 PM EST Temperature 36.9 C (98.4 F) 04/16/2025 3:03 PM EST Respiratory Rate 20 04/16/2025 3:03 PM EST Oxygen Saturation 98% 04/16/2025 3:03 PM EST Inhaled Oxygen Concentration - - Weight 69.4 kg (153 lb) 04/16/2025 3:03 PM EST Height 152.4 cm (5') 04/16/2025 3:03 PM EST Body Mass Index 29.88 04/16/2025 3:03 PM EST documented in this encounter Plan of Treatment Upcoming Encounters Date Type Department Care Team (Late st Contact Info) Description 06/01/2025 9:00 AM EST Office Visit [facility] [address] [place] [address] Megan Gallardo MD [address] [place] [address] 06/20/2025 10:45 AM EST Office Visit [facility] [address] [place] [address] Megan Gallardo MD [address] [place] [address] Scheduled Orders Name Type Priority Associated Diagnoses Orde r Schedule CBC auto differential Lab Routine Primary hypertension Expected: 04/16/2025 (Approximate), Expires: 04/16/2026 Comprehensive Metabolic Panel Lab Routine Primary hypertension Expected: 04/16/2025 (Approximate), Expires: 04/16/2026 Albumin, Random Urine W/Creatinine Lab Routine Primary hypertension Expected: 04/16/2025 (Approximate), Expires: 04/16/2026 TSH W/Reflex to FT4 Lab Routine Primary hypertension Expected: 04/16/2025 (Approximate), Expires: 04/16/2026 Lipid Panel, Standard Lab Routine Primary hypertension Expected: 04/16/2025 (Approximate), Expires: 04/16/2026 hCG, Total, Quantitative Lab Routine Abnormal uterine bleeding Expected: 04/16/2025 (Approximate), Expires: 04/16/2026 FSH Lab Routine Abnormal uterine bleeding Expected: 04/16/2025, Expires: 04/16/2026 Estradiol Lab Routine Abnormal uterine bleeding Expected: 04/16/2025, Expires: 04/16/2026 Anti-Mullerian Hormone (AMH), Female Lab Routine Abnormal uterine bleeding Expected: 04/16/2025 (Approximate), Expires: 04/16/2026 Scheduled Referrals Name Type Priority Associated Diagnoses Orde r Schedule Referral to Physical Therapy Outpatient Referral Routine Piriformis syndrome of left side Iliotibial band syndrome of left side Expected: 04/16/2025 (Approximate), Expires: 04/16/2026 documented as of this encounter Procedures Procedure Name Priority Date/Time Associated Diagnosis Comments POCT , URINE Routine 04/16/2025 4:27 PM EST Abnormal uterine bleeding documented in this encounter Results * POCT Urine (04/16/2025 4:27 PM EST) Preg Test, Ur Negative Negative, Indeterminate, None Detected, Trace, 3+, Specimen unsatisfactory for evaluation, Weakly Positive, 1+, 2+ QC Media Lot # [id number] Lot# Expiration Date [id number] Urine 04/16/2025 4:27 PM EST us Megan Gallardo MD POINT OF CARE TEST ENTER/EDIT ORDERABLES Final Result documented in this encounter Visit Diagnoses Diagnosis Abnormal uterine bleeding- Primary Unspecified disorder of menstruation and other abnormal bleeding from female genital tract Dietary counseling Dietary surveillance and counseling Exercise counseling Overweight Primary hypertension Unspecified essential hypertension Piriformis syndrome of left side Iliotibial band syndrome of left side documented in this encounter Additional Health Concerns Assessment Noted Time PHQ-9 Depression Total Score: 0 04/13/20 10:33 AM EST documented as of this encounter Care Teams Continuous Improvement Director Relationship Specialty Start Date End Date Megan Gallardo MD [address] [place] [address] PCP - General Family Medicine 12/17/23 documented as of this encounter
--- OUTSIDE RECORDS SUMMARY | 2025-04-17 09:32 | XMS_ITS | Encounter Summary ---
Author Organization [employer] Address [address] [place] [address] Care Team Providers Care Physician/Allergy/Immunology Name Role Phone Megan Gallardo MD Primary Care Provider [phone] Encounter Details Date Type Department Care Team [...] Description 06/01/2025 9:00 AM EST Office Visit [facility] [address] [place] [address] Megan Gallardo MD [address] [place] [address] 06/20/2025 10:45 AM EST Office Visit [facility] [address] [place] [address] Megan Gallarod MD [address] [place] [address] documented as of this encounter Visit Diagnoses Not on filedocumented in this encounter Additional Health Concerns Assessment Noted Time PHQ-9 Depression Total Score: 0 04/13/20 24 10:33 AM EST documented as of this encounter Care Teams Physician/Allergy/Immunology Relationship Specialty Start Date End Date Megan Gallardo MD [address] [place] [address] PCP - General Family Medicine 12/17/23 documented as of this encounter
--- OUTSIDE RECORDS SUMMARY | 2025-04-17 09:32 | XMS_ITS | Encounter Summary ---
Author Organization [employer] [facility] Address [address] [place] [address] 7 [place] [address] Care Team Providers Care Track Subway Repair Supervisor Name Role Phone Terrance Bates MD Primary Care Prov ider Megan Gallardo MD Primary Care Provider [phone] Encounter Details Date Type Department Care Team (Late Contact Info) Description 07/31/[address] [facility] [address] [place] [address] Cathi Barnett LPN Social History Tobacco Use [...] Description 06/01/2025 9:00 AM EST Office Visit [facility] [address] [place] [address] Megan Gallardo MD [address] [place] [address] 06/20/2025 10:45 AM EST Office Visit [facility] [address] [place] [address] Megan Gallardo MD [address] [place] [address] documented as of this encounter Visit Diagnoses Not on filedocumented in this encounter Care Teams Track Subway Repair Supervisor Relationship Specialty Start Date End Date Terrance Bates MD [address] [place] [address] PCP - General Internal Medicine 10/17/19 12/16/23 Megan Gallardo MD [address] [place] [phone] PCP - General Family Medicine 12/17/23 documented as of this encounter
--- OUTSIDE RECORDS SUMMARY | 2025-04-17 09:32 | XMS_ITS | Encounter Summary ---
Author Organization [employer] Address [address] [place] [address] Care Team Providers Care Machine Maintenance Name Role Phone Megan Gallardo MD Primary Care Provider [phone] Reason for Visit * Reason Onset Date Comments Appointment 04/16/2025 Encounter Details Date Type Department Care Team ([facility] Contact Info) Description 04/16/[address] [facility] [address] [place] [address] Megan Gallardo MD [address] [place] [address] Appointment Social History Tobacco Use Types Packs/Day [...] 04/16/2025 3:54 PM EST Outgoing call lvm technical proposal writer attempted to mane active request appointment: Follow up in about 4 weeks (around 05/14/2025). If pt returns call please scheule on next avail. documented in this encounter Plan of Treatment Upcoming Encounters Date Type Department Care Team (Late st Contact Info) Description 06/01/2025 9:00 AM EST Office Visit [facility] [address] [place] [address] Megan Gallardo MD [address] [place] [address] 06/20/2025 10:45 AM EST Office Visit [facility] [address] [place] [address] Megan Gallardo MD [address] [place] [address] documented as of this encounter Visit Diagnoses Not on filedocumented in this encounter Additional Health Concerns Assessment Noted Time PHQ-9 Depression Total Score: 0 04/13/20 10:33 AM EST documented as of this encounter Care Teams Machine Maintenance Relationship Specialty Start Date End Date Megan Gallardo MD [address] [place] [address] PCP - General Family Medicine 12/17/23 documented as of this encounter
--- OUTSIDE RECORDS SUMMARY | 2025-04-17 09:32 | XMS_ITS | Clinical Summary ---
Author Organization [employer] Address [address] [place] [address] Care Team Providers Care Rawhide Bone Roller Name Role Phone Megan Gallardo MD Primary Care Provider [phone] Allergies Active Allergy Reactions Criticality Noted Date [...] recommended reduction of 20-30% of maintenance calories; ice cream man referral offered. Recommended to decrease soda and [...] 04/16/2025 3:30 PM EST Office Visit [facility] [address] [place] [address] Megan Gallardo MD Abnormal uterine bleeding (Primary Dx); Dietary counseling; Exercise counseling; Overweight; Primary hypertension; Piriformis syndrome of left side; Iliotibial band syndrome of left side 04/16/2025 Telephone [facility] [address] [place] [address] Megan Gallardo MD Appointment 04/16/2025 Travel 04/11/2025 Telephone [facility] [address] [place] [address] Sana Parikh RN 04/02/2025 Telephone [facility] [address] [place] [address] Megan Gallardo MD cx appointment 03/23/2025 Patient Outreach [facility] [address] [place], [place] [phone] Megan Gallardo MD Pre-visit Planning (Pre visit [...] 06/01/2025 9:00 AM EST Office Visit [facility] [address] [place] [address] Megan Gallardo MD [address] [place] [address] 06/20/2025 10:45 AM EST Office Visit [facility] [address] [place] [address] Megan Gallardo MD [address] [place] [address] Health Maintenance Due Date Last Done Comments [...] Media Lot # [id number] Lot# Expiration Date [id number] Urine 04/16/2025 4:27 PM EST us Megan Gallardo MD POINT OF CARE TEST ENTER/EDIT ORDERABLES Final Result * Albumin, Random Urine W/Creatinine (04/16/2025 3:37 PM EST) Creatinine, Urine 31.91 mg/dL [facility] Microalbumin Urine <5.0 mg/L [facility] Microalbum Creatinine Ratio Ur TNP <30 ug/mg cr [facility] Comment:Unable to calculate albumin/creatinine ratio due to lowmicroalbumin or creatinine result. 04/16/2025 3:37 PM EST 04/16/2025 6:19 PM EST us Megan Gallardo MD LAB URINE ORDERABLES Final Re sult Performing Organization Address City/State/[facility] Co de Phone Number [facility] [address] [place] [phone] * BI Mammogram Screening Tomosynthesis Bilateral (2024 1:15 PM EDT) Anatomical Region Laterality Modality Breast Bilateral Mammography 2024 1:15 PM EDT Narrative 10/21/2024 11:54 AM EDT [address] [place] [address] Mammography Report Signed Patient: Renuka Barber MR#: [id number] 0 : 1975 Acct:[id number] Age/Sex: 49 / F ADM Date: 10/12/24 Loc: HO.MAMMO Attending Dr: Megan Gallardo MD Ordering Physician: Megan Gallardo MD Results: 2Beni gn Findings Date of Service: 10/12/24 Follow Up: 1 Year From Orig inal Mammogram Procedure(s): MM tomosynthesis screening BI Accession Number(s): [id number] cc: Megan Gallardo MD EXAMINATION: MM SCREENING [...] 10/21/24 1151 DD/ 1315 TD/TT: 10/12/24 1332 Train Operations Manager: Procedure Note Donotuseinterpreter, Image - [facility] [address] [place] [address] Mammography Report Signed Patient: Tee Barber#: [id number] 0 : 1975Acct:[id number] Age/Sex: 49 / FADM Date: 10/12/24 Loc: HO.MAMMO Attending Dr: Megan Gallardo MD Ordering Physician: Megan Gallardo MDResults: 2Beni gn Findings Date of Service: 10/12/24Follow Up: 1 Year From Orig inal Mammogram Procedure(s): MM tomosynthesis screening BI Accession Number(s): [id number] cc: Megan Gallardo MD EXAMINATION: MM SCREENING [...] 10/21/24 1151 DD/ 1315 TD/TT: 10/12/24 1332 Train Operations Manager: us Megan Gallardo MD IMG BI PROCEDURES Final Resul t * Cologuard?? colon cancer screening (01/18/2024 10:30 AM EDT) Cologuard Result Negative Negative 01/24/20 8:29 AM EDT [facility] (CLIA #:[id number]) Comment: NEGATIVE TEST RESULT. A negative Cologuard [...] (Waldo Murphy al, N Engl J Med 2014;370(14):9091-6957) The normal value (reference range) for this assay is negative. COLOGUARD RE-SCREENING RECOMMENDATION: Periodic colorectal cancer screening is an important part of preventive healthcare for asymptomatic individuals at average risk for colorectal cancer. Following a negative Cologuard result, the [place] [employer] and U.S. Multi-Society Task Force screening guidelines recommend a Cologuard re-screening interval of 3 years. References: [place] [employer] Guideline for Colorectal Cancer Screening: https://www.cancer.org/cancer/iplkv-knyhfv-flmrsz/hpkngpmzl-uyvgilteb-qyrrjbd/ac s-rec ommendations.html.; Yo DK, Matti CR, Senia HoganK, Colorectal Cancer Screening: Recommendations for Physicians and Patients from the U.S. Multi-Society Task Force on Colorectal Cancer Screening , Am J Gastroenterology 2017; 112:6358-1022. TEST DESCRIPTION: Composite algorithmic analysis of stool [...] (Waldo Murphy al, N Engl J Med 2014;370(14):9383-5507.) Cologuard may produce a false negative or false positive result (no colorectal cancer or precancerous polyp present at colonoscopy follow up). A negative Cologuard test result does not guarantee the absence of CRC or advanced adenoma (pre-cancer). The current Cologuard screening interval is every 3 years. ([place] [employer] and U.S. Multi-Society Task Force). Cologuard performance data in a 10,000 patient pivotal study using colonoscopy as the reference method can be accessed at the following location: www.[employer]./results. Additional description of the Cologuard test process, warnings and precautions can be found at www.colMustard Tree Instrumentsrd.com. Stool specimen (specimen) 01/18/2024 10:30 AM EDT 01/19/2024 4:04 PM EDT us Megan Gallardo MD LAB MOLECULAR DIAGNOSTICS ORD ERABLES Final Result [facility] (CLIA #:[id number]) [address] [place] [address], * (ABNORMAL) Lipid Panel, Standard (12/22/2023 10:17 AM EDT) Triglycerides 75 <150 mg/dL [facility] Comment:Desirable Triglyceri de: less than 150 mg/dLBorderline High Triglyceride 150-199 mg/dLHigh Triglyceride: 200-499 mg/dLVery High Triglyceride: greater than or equal to 5OO mg/dL Cholesterol 193 <200 mg/dL [facility] Comment:Desirable Cholestero l: less than 200 mg/dLBorderline High Cholesterol: 200-239 mg/dLHigh Cholesterol: greater than 239 mg/dL LDL Cholesterol Calculated 126(H) <100 mg/dL [facility] Comment:Desirable LDL: less than 100 mg/dLNear Optimal/Above Optimal LDL: 110- 129 mg/dLBorderline High LDL: 130-159 mg/dLHigh LDL: 160-189 mg/dLVery High LDL: greater than or equal to 190 mg/dL HDL Cholesterol 52 >40 mg/dL [facility] Comment:Desirable HDL: great er than 40 mg/dL Note: This HDL assay may give artificially low results in patients with liver disease. Blood Venous blood specimen / Unknown 12/22/2023 10:17 AM EDT 12/22/2023 2:24 PM EDT us Meagn Gallardo MD LAB BLOOD ORDERABLES Final Re sult Performing Organization Address [facility] Co de Phone Number [facility] [address] [place] [phone] * THINPREP PAP (11/12/2020 10:41 AM [...] along with historic and current clinical information. 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 [facility] LMP: NONE GIVEN [facility] Prev. BX: NONE GIVEN [facility] Prev. PAP: NONE GIVEN [facility] SOURCE: None given [facility] Statement Of Adequacy: SEE COMMENT [facility] Comment: Satisfactory for evaluation. Endocervical/transformation zone component absent. Age and/or menstrual status not provided 11/12/2020 10:4 1 AM EDT us Natividad Duffy CNM LAB PATHOLOGY ORDERABLES Final Result Performing Organization Address [facility]/ZIP Co de Phone Number [facility] [address] [place] [phone] * HPV mRNA E6/E7 (11/12/2020 10:41 AM EDT) HPV nRNA E6/E7 Not Detected Not Detected [facility] Comment: Methodology: Court Monitor-Mediated Amplification This assay detects E6/E7 viral messenger RNA (mRNA) from 14 high-risk HPV types (16,18,31,33,35,39,45,51,52,56,58,59,66,68). The analytical performance characteristics of this assay have been determined by [employer]. The modifications have not been cleared or approved by the FDA. This assay has been validated pursuant to the CLIA regulations and is used for clinical purposes. For additional information, please refer to http://education.[employer] Connect/faq/HIH063a4 (This link if provided for information/ educational purposes only.) 11/12/2020 10:4 1 AM EDT Natividad Duffy [facility] LAB BLOOD ORDERABLES Criss l Result Performing Organization Address [facility] Phone Number [facility] [address] * HEPATITIS C ANTIBODY RFLX (06/09/2019 8:27 AM EST) Pathologist [facility] HEPATITIS C ANTIBODY NONREACTIVE NONREACTIVE [facility] Comment: Antibodies to HCV not detected; does not exclude early acute HCV infection. 06/09/2019 8:27 AM EST Historical Provider MD HISTORICAL/NON ORDERABLE LABS Final Result Performing Organization Address [facility] Phone [facility] [address] * HIV AB/AG (06/09/2019 8:27 AM EST) Pathologist [facility] HIV AG/AB NONREACTIVE NR [facility] [...] of detection of this assay. The Palomares Trimmer Operator Three Knife HIV Ag/Ab Combo assay result and supplemental assay results should be interpreted in conjunction with the patient's clinical presentation, history and other laboratory results. If the results are inconsistent with clinical evidence, additional testing is suggested to confirm the result. 06/09/2019 8:27 AM EST us Historical Provider HISTORICAL/NON ORDERABLE LABS Final Result [facility] [address] from Last 3 Months or Most Recently Relevant to Health Maintenance Insurance [facility] 3 DENTAL - HSN PARTIAL (MEDICAID) Care Teams Rawhide Bone Roller Relationship Specialty Start Date End Date Megan Gallardo MD [address] [place] [phone] PCP - General Family Medicine 12/17/23
--- OUTSIDE RECORDS SUMMARY | 2025-04-17 09:33 | XMS_ITS | Encounter Summary ---
Author Organization [employer] Address [address] [place] [address] Care Team Providers Care Certified Financial Planner Name Role Phone Megan Gallardo MD Primary Care Provider [phone] Encounter Details Date Type Department Care Team (Late st Contact Info) Description 04/11/2025 Telephone [facility] [address] [place], [place] [phone] Sana Parikh, RN [address] [place] [address] Social History Tobacco Use Types Packs/Day Years [...] pt understands and agrees with plan. used French asl interpreter from [employer] #[id number]. given appt reminder at end of visit. [...] Description 06/01/2025 9:00 AM EST Office Visit [facility] [address] [place], [place] [phone] Megan Gallardo MD [address] [place] [address] 06/20/2025 10:45 AM EST Office Visit [facility] [address] [place] [address] Megan Gallardo MD [address] [place] [address] documented as of this encounter Visit Diagnoses Not on filedocumented in this encounter Additional Health Concerns Assessment Noted Time PHQ-9 Depression Total Score: 0 04/13/20 10:33 AM EST documented as of this encounter Care Teams Certified Financial Planner Relationship Specialty Start Date End Date Megan Gallardo MD [address] [place] [phone] PCP - General Family Medicine 12/17/23 documented as of this encounter
[2025-04-17 14:17] LABS: MANUAL DIFF FLAG NO
[2025-04-17 14:29] LABS: Hematocrit 41.8 % (37.0-47.0); Hemoglobin 13.2 g/dl (12.0-16.0); Imm Gran Abs Auto 0.02 X10*3/uL (0.00-0.03); Imm Gran Pct Auto 0.3 % (0.0-0.4); Lymphocytes Absolute Auto 2.7 X10*3/uL (1.2-4.9); Mean Corpuscular HGB Conc 31.6 g/dl (31.0-35.0); Mean Corpuscular Hemoglobin 28.0 pg (27.0-33.0); Mean Corpuscular Volume 88.7 fL (80.0-98.0); NRBC Abs Auto 0.000 X10*3/uL (0.0-0.012); NRBC Pct Auto 0.0 /100WBC (0.0-0.2); Platelet Count 315 X10*3/uL (160-400); Red Blood Count 4.71 X10*6/uL (4.20-5.50); White Blood Count 7.1 X10*3/uL (4.8-10.8)
[2025-04-17 14:59] LABS: Alanine Aminotransferase 15 U/L (0-31); Albumin Level 4.1 g/dL (3.5-5.0); Alkaline Phosphatase 78 U/L (39-117); Anion Gap 9 (12-20); Aspartate Amino Transferase 26 U/L (5-31); Blood Urea Nitrogen 21 mg/dL (9-16); Calcium 9.1 mg/dL (8.4-10.2); Carbon Dioxide 29 mmol/L (22-29); Chloride 105 mmol/L (96-108); Cholesterol 168 mg/dL (<200); Estimated Glomerular Filt Rate > 60; HDL Cholesterol 55 mg/dL (>40); Potassium 3.9 mmol/L (3.3-5.1); Sodium 139 mmol/L (135-145); Total Protein 6.9 g/dL (6.5-8.0); Triglycerides 57 mg/dL (<150)
[2025-04-18 18:17] LABS: Follicle Stimulating Hormone 66.9 mIU/mL
[2025-04-20 18:58] LABS: Anti-Mullerian Hormone-Female 0.01 ng/mL
== END 2025-04-17 08:57 | disposition home or self-care (01) ==
LOC: HO.CHCLDS 08:56
PROVIDERS: Visit Provider Family Medicine
DX: I10 Essential (primary) hypertension (principal); N93.9 Abnormal uterine and vaginal bleeding, unspecified
CPT/HCPCS: 36415; 80053; 80061; 82166; 82670; 83001; 84443; 84702; 85025